=== PATIENT | female | born 1950 | race Caucasian/White ===

== ENCOUNTER 2020-08-18 16:12 | Inpatient (IN) | payer MEDICARE, BC ==
[2020-08-18] MEDS ORDERED: Sodium Chloride 0.9% 1,000 ML IV ONE (17:11)
--- NOTE | 2020-08-18 17:19 | EDM.PDOC ---
ED HPI GENERAL MEDICAL PROBLEM - General Chief Complaint: General Stated Complaint: LOW ON SODIUM SENT BY AB Time Seen by Provider: 08/18/20 16:58 Source of Information: Reports: Patient, RN Notes Reviewed History Limitations: Reports: No Limitations - History of Present Illness INITIAL COMMENTS - FREE TEXT/NARRATIVE: Patient is a 70-year-old female who presents to the ED for evaluation of her low sodium levels. Patient does have a history of breast cancer, was started on 2 different cancer medications recently, these seem to be causing issues with her sodium. Her sodium was low a week ago at 120, and a repeat of her labs today did demonstrate a low sodium of 119. Her potassium was 3.0. She did receive a 500 mL normal saline bolus along with 10 mEq potassium. Patient states she is nauseous in the morning, but is not currently nauseous. She has been using her Phenergan and Zofran for this. Otherwise feeling well no fevers or chills, cough or shortness of breath. She notes that the nurse practitioner did hold of those cancer meds in regards to her low sodium levels. - Related Data Allergies Allergy/AdvReac Type Severity Reaction Status Date / Time cefprozil [From Cefzil] Allergy Severe Rash Verified 08/18/20 16:48 Penicillins Allergy Severe Rash Verified 08/18/20 16:48 Home Meds: Home Meds Acetaminophen [Tylenol] 650 mg PO Q6H PRN 08/18/20 [History] Aspirin [Halfprin] 81 mg PO DAILY 08/18/20 [History] Benzonatate [Tessalon Perle] 1 tab PO TID PRN 08/18/20 [History] Calcium Carbonate [Calcium] 500 mg PO ASDIRECTED 08/18/20 [History] Cyanocobalamin (Vitamin B12) [Vitamin B12] 500 mcg PO DAILY 08/18/20 [History] Granisetron [Kytril] 1 mg PO Q6H PRN 08/18/20 [History] Insulin Glargine,Hum.Rec.Anlog [Hari Hammonds] 68 units INJECT DAILY 08/18/20 [History] Insulin Lispro [Humalog Kwikpen U-100] 10 units INJECT DAILY 08/18/20 [History] Insulin Lispro [Humalog Kwikpen U-100] 15 unit INJECT 1200 08/18/20 [History] Insulin Lispro [Humalog Kwikpen U-100] 25 unit INJECT 1700 08/18/20 [History] LORazepam [Ativan] 1 mg PO DAILY 08/18/20 [History] Latanoprost [Xalatan 0.005% Ophth Soln] 1 drop TOP BEDTIME 08/18/20 [History] Lutein/Minerals/Vit A,C & E [Ocuvite] 1 tab PO DAILY 08/18/20 [History] Metoprolol Tartrate [Lopressor] 100 mg PO BID 08/18/20 [History] Omeprazole Magnesium [Prilosec Otc] 20 mg PO DAILY 08/18/20 [History] Ondansetron [Zofran ODT] 4 mg PO Q6H PRN 08/18/20 [History] Potassium Chloride [K-Tab ER] 10 meq PO TID 08/18/20 [History] Pravastatin [Pravachol] 80 mg PO BEDTIME 08/18/20 [History] Promethazine [Phenergan] 0.2 mg TOP Q6H PRN 08/18/20 [History] Triamcinolone Acetonide [Kenalog 0.1% Crm] 1 applic TOP BID 08/18/20 [History] amLODIPine Besylate [Norvasc] 10 mg PO DAILY 08/18/20 [History] busPIRone [Buspar] 10 mg PO BID 08/18/20 [History] hydroCHLOROthiazide [Hydrochlorothiazide] 12.5 mg PO DAILY 08/18/20 [History] lidocaine HCL [Lidocaine HCl Viscous] 30 ml PO Q6H PRN 08/18/20 [History] prednisoLONE acetate [Pred Forte 1% Ophth Susp] 1 drop TOP TID 08/18/20 [History] Past Medical History Endocrine/Metabolic History: Reports: Diabetes, Type II Oncologic (Cancer) History: Reports: Breast Other Oncologic History: right MASTECTOMY 2000 - Past Surgical History Female Surgical History: Reports: Mastectomy Social & Family History - Tobacco Use Tobacco Use Status *Q: Never Tobacco User - Caffeine Use Caffeine Use: Reports: Soda - Recreational Drug Use Recreational Drug Use: No ED ROS GENERAL - Review of Systems Review Of Systems: Comprehensive ROS is negative, except as noted in HPI. ED EXAM, GENERAL - Physical Exam Exam: See Below Exam Limited By: No Limitations General Appearance: Alert, WD/WN, No Apparent Distress Respiratory/Chest: No Respiratory Distress, Lungs Clear, Normal Breath Sounds, No Accessory Muscle Use, Chest Non-Tender Cardiovascular: Normal Peripheral Pulses, Regular Rate, Rhythm, No Edema, No Murmur Extremities: Normal Inspection, Normal Capillary Refill Neurological: Alert, Oriented, Normal Cognition, No Motor/Sensory Deficits Psychiatric: Normal Affect, Normal Mood Skin Exam: Warm, Dry, Intact, Normal Color, No Rash Course - Vital Signs Last Recorded V/S: Last Vital Signs Temp 98.1 F 08/18/20 19:19 Pulse 85 08/18/20 19:19 Resp 16 08/18/20 19:19 BP 152/58 H 08/18/20 19:19 Pulse Ox 90 L 08/18/20 19:19 - Orders/Labs/Meds Orders: Active Orders 24 hr Category Date Time Status Admission Status [Patient Status] [ADT] Routine ADT 08/18/20 19:57 Active SODIUM,NA [CHEM] Stat Lab 08/18/20 19:50 Ordered Magnesium Sulfate/Water [Magnesium Sulfate in Water Med 08/18/20 18:52 Active Premix] 2 gm Premix Bag 1 bag IV ONETIME Sodium Chloride 3% 500 ml Med 08/18/20 20:00 Active IV ASDIRECTED Medication Orders Magnesium Sulfate 2 gm/ Premix 50 mls @ 25 mls/hr IV ONETIME ONE Stop: 08/18/20 20:51 Last Admin: 08/18/20 19:16 Dose: 25 mls/hr Documented by: ARNOLDO Sodium Chloride (Sodium Chloride 3%) 500 mls @ 35 mls/hr IV ASDIRECTED COLLINS Labs: Laboratory Tests 08/18/20 08/18/20 Range/Units 17:21 18:45 Sodium 118 L (136-145) mEq/L Potassium 2.8 L (3.5-5.1) mEq/L Chloride 81 L (98-107) mEq/L Carbon Dioxide 29 (21-32) mEq/L Anion Gap 10.8 (5-15) BUN 13 (7-18) mg/dL Creatinine 1.7 H (0.55-1.02) mg/dL Est Cr Clr Drug Dosing 24.70 mL/min Estimated GFR (MDRD) 30 (>60) mL/min BUN/Creatinine Ratio 7.6 L (14-18) Glucose 104 (80-115) mg/dL Serum Osmolality 249 L (280-300) mosm/kg Calcium 8.2 L (8.5-10.1) mg/dL Magnesium 1.4 L (1.8-2.4) mg/dl Total Bilirubin 0.4 (0.2-1.0) mg/dL AST 48 H (15-37) U/L ALT 26 (14-59) U/L Alkaline Phosphatase 94 (46-116) U/L Total Protein 7.1 (6.4-8.2) g/dl Albumin 2.8 L (3.4-5.0) g/dl Globulin 4.3 gm/dL Albumin/Globulin Ratio 0.7 L (1-2) SARS-CoV-2 RNA (TORSTEN) Negative (NEGATIVE) Meds: Medications Generic Name Dose Route Start Last Admin Trade Name Freq PRN Reason Stop Dose Admin Magnesium Sulfate 2 gm/ Premix 50 mls @ 25 mls/hr 08/18/20 18:52 08/18/20 19:16 IV 08/18/20 20:51 25 mls/hr ONETIME ONE Administration Sodium Chloride 500 mls @ 35 mls/hr 08/18/20 20:00 Sodium Chloride 3% IV ASDIRECTED COLLINS Discontinued Medications Generic Name Dose Route Start Last Admin Trade Name Freq PRN Reason Stop Dose Admin Sodium Chloride 1,000 mls @ 500 mls/hr 08/18/20 17:11 08/18/20 17:43 Normal Saline IV 08/18/20 19:10 500 mls/hr ONETIME ONE Administration Ondansetron HCl 4 mg 08/18/20 19:21 08/18/20 19:25 Zofran IVPUSH 08/18/20 19:22 4 mg ONETIME ONE Administration Potassium Chloride 40 meq 08/18/20 18:52 08/18/20 19:14 Klor-Con M20 PO 08/18/20 18:53 40 meq ONETIME ONE Administration - Re-Assessments/Exams Free Text/Narrative Re-Assessment/Exam: 08/18/20 17:20 Patient presents to the ED for her low sodium levels. We will repeat labs to include CMP, magnesium level and a serum osmolality. I do believe that the medications she was given have caused some issues with her sodium levels but she has also been drinking a lot of water at home, which could be aggravating the situation. She will get IV fluids at 500 mils per hour while we are waiting for the results of the labs. Departure - Departure Time of Disposition: 20:02 Disposition: Refer to Observation Condition: Good Clinical Impression: Hyponatremia with decreased serum osmolality, Hypokalemia, Hypomagnesemia UTI (urinary tract infection) Qualifiers: Urinary tract infection type: acute cystitis Hematuria presence: with hematuria Qualified Code(s): N30.01 - Acute cystitis with hematuria - Discharge Information *PRESCRIPTION DRUG MONITORING PROGRAM REVIEWED*: No *COPY OF PRESCRIPTION DRUG MONITORING REPORT IN PATIENT JUANPABLO: No Referrals: Arelis Merchant NP [Primary Care Provider] - Forms: ED Department Discharge Sepsis Event Note (ED) - Evaluation Sepsis Screening Result: No Definite Risk - Focused Exam Vital Signs: Vital Signs Temp Pulse Resp BP Pulse Ox 08/18/20 19:19 98.1 F 85 16 152/58 H 90 L 08/18/20 16:52 98.2 F 79 20 147/52 H 93 L - My Orders Last 24 Hours: My Active Orders 08/18/20 18:52 Magnesium Sulfate/Water [Magnesium Sulfate in Water Premix] 2 gm Premix Bag 1 bag IV ONETIME 08/18/20 19:50 SODIUM,NA [CHEM] Stat 08/18/20 19:57 Admission Status [Patient Status] [ADT] Routine 08/18/20 20:00 Sodium Chloride 3% 500 ml IV ASDIRECTED - Assessment/Plan Last 24 Hours: My Active Orders 08/18/20 18:52 Magnesium Sulfate/Water [Magnesium Sulfate in Water Premix] 2 gm Premix Bag 1 bag IV ONETIME 08/18/20 19:50 SODIUM,NA [CHEM] Stat 08/18/20 19:57 Admission Status [Patient Status] [ADT] Routine 08/18/20 20:00 Sodium Chloride 3% 500 ml IV ASDIRECTED
[2020-08-18] MEDS ORDERED: Magnesium Sulfate/Water 2 GM in Premix Bag 1 BAG IV ONE (18:52)
[2020-08-18] MEDS ORDERED: Potassium Chloride 20 MEQ Tab.ER PO ONE (18:52)
[2020-08-18] MEDS ORDERED: Ondansetron 4 MG/2 ML SDV IVPUSH ONE (19:21)
[2020-08-18] MEDS ORDERED: Sodium Chloride 3% 500 ML IV SCH (20:00)
[2020-08-18] MEDS ORDERED: Ondansetron 4 MG/2 ML SDV IV PRN (21:51)
[2020-08-18] MEDS ORDERED: Benzonatate 100 MG Cap PO PRN (21:59)
--- NOTE | 2020-08-18 22:15 | PCM.HP.2 ---
H&P History of Present Illness - General Date of Service: 08/18/20 Admit Problem/Dx: Admission Diagnosis/Problem Admission Diagnosis/Problem Hyponatremia with decreased serum osmolality - History of Present Illness Initial Comments - Free Text/Narative: 70-year-old female with history of breast cancer first diagnosed in 2000 had a recurrence in 2018 with metastasis to the lung and then after further chemo returned again approximately a month ago into her lymph nodes. Approximately 1 month ago she started on Afinitor and Aromasin and since then she has been feeling fatigued. Apparently she has had significantly low sodium levels over the last week or so. Last week her sodium was 120 and today at clinic it was 119. Potassium was also low at 3.0. She was given 500 mL of normal saline and 10 mEq of potassium at the cancer clinic and referred to our emergency department. There her sodium was found to be 118 with potassium of 2.8 and a magnesium of 1.4. She was given another 500 mL of normal saline, potassium 40 mEq p.o., and 2 g of magnesium IV. Patient was then referred for admission for further correction of her chronic hyponatremia. Oncology nurse practitioner did tell her to stop taking her to do chemotherapy medications. She states the last time she took Afinitor was 1 week ago and Aromasin yesterday. She also states that she is feeling better now than she has in the last month. She feels a little stronger. Serum osmolality here was 249, but a urine osmolality and urine sodium were not obtained. Patient did have a UTI on labs obtained at the cancer center. She had greater than 50 WBCs and positive nitrites. Covid negative. When she was brought to the inpatient side her oxygen saturations were below 90. Patient was started on 2 L nasal cannula. - Related Data Allergies/Adverse Reactions: Allergies Allergy/AdvReac Type Severity Reaction Status Date / Time cefprozil [From Cefzil] Allergy Severe Rash Verified 08/18/20 16:48 Penicillins Allergy Severe Rash Verified 08/18/20 16:48 Home Medications: Home Meds Acetaminophen [Tylenol] 650 mg PO Q6H PRN 08/18/20 [History] Aspirin [Halfprin] 81 mg PO DAILY 08/18/20 [History] Benzonatate [Tessalon Perle] 1 tab PO TID PRN 08/18/20 [History] Calcium Carbonate [Calcium] 500 mg PO ASDIRECTED 08/18/20 [History] Cyanocobalamin (Vitamin B12) [Vitamin B12] 500 mcg PO DAILY 08/18/20 [History] Granisetron [Kytril] 1 mg PO Q6H PRN 08/18/20 [History] Insulin Glargine,Hum.Rec.Anlog [Toujeo Solostar] 68 units INJECT DAILY 08/18/20 [History] Insulin Lispro [Humalog Kwikpen U-100] 10 units INJECT DAILY 08/18/20 [History] Insulin Lispro [Humalog Kwikpen U-100] 15 unit INJECT 1200 08/18/20 [History] Insulin Lispro [Humalog Kwikpen U-100] 25 unit INJECT 1700 08/18/20 [History] LORazepam [Ativan] 1 mg PO DAILY 08/18/20 [History] Latanoprost [Xalatan 0.005% Ophth Soln] 1 drop TOP BEDTIME 08/18/20 [History] Lutein/Minerals/Vit A,C & E [Ocuvite] 1 tab PO DAILY 08/18/20 [History] Metoprolol Tartrate [Lopressor] 100 mg PO BID 08/18/20 [History] Omeprazole Magnesium [Prilosec Otc] 20 mg PO DAILY 08/18/20 [History] Ondansetron [Zofran ODT] 4 mg PO Q6H PRN 08/18/20 [History] Potassium Chloride [K-Tab ER] 10 meq PO TID 08/18/20 [History] Pravastatin [Pravachol] 80 mg PO BEDTIME 08/18/20 [History] Promethazine [Phenergan] 0.2 mg TOP Q6H PRN 08/18/20 [History] Triamcinolone Acetonide [Kenalog 0.1% Crm] 1 applic TOP BID 08/18/20 [History] amLODIPine Besylate [Norvasc] 10 mg PO DAILY 08/18/20 [History] busPIRone [Buspar] 10 mg PO BID 08/18/20 [History] hydroCHLOROthiazide [Hydrochlorothiazide] 12.5 mg PO DAILY 08/18/20 [History] lidocaine HCL [Lidocaine HCl Viscous] 30 ml PO Q6H PRN 08/18/20 [History] prednisoLONE acetate [Pred Forte 1% Ophth Susp] 1 drop TOP TID 08/18/20 [History] Past Medical History Endocrine/Metabolic History: Reports: Diabetes, Type II Oncologic (Cancer) History: Reports: Breast Other Oncologic History: right MASTECTOMY 2000 - Past Surgical History Female Surgical History: Reports: Mastectomy Social & Family History - Tobacco Use Tobacco Use Status *Q: Never Tobacco User - Caffeine Use Caffeine Use: Reports: Soda - Recreational Drug Use Recreational Drug Use: No H&P Review of Systems - Review of Systems: Review Of Systems: Comprehensive ROS is negative, except as noted in HPI. Exam - Exam Exam: See Below - Vital Signs Vital Signs: Last Vital Signs Temp 98.1 F 08/18/20 19:19 Pulse 85 08/18/20 19:19 Resp 16 08/18/20 19:19 BP 152/58 H 08/18/20 19:19 Pulse Ox 90 L 08/18/20 19:19 Weight: 175 lb - Exam General: Alert, Oriented, 4 HEENT: Conjunctiva Clear, Mucosa Moist & [place]yp[place], Normal Nasal Septum. No: Hearing Intact Neck: Supple, Trachea Midline, 2 Lungs: Clear to Auscultation, Normal Respiratory Effort Cardiovascular: Regular Rate, Regular Rhythm GI/Abdominal Exam: Normal Bowel Sounds, Soft, Non-Tender, No Distention Back Exam: Normal Inspection Extremities: Normal Inspection, Normal Range of Motion, Non-Tender, No Pedal Edema, Normal Capillary Refill Skin: Warm, Dry, Intact Neuro Extensive - Mental Status: Alert, Oriented x3, Normal Mood/Affect, Normal Cognition, Memory Intact Neuro Extensive - Motor, Sensory, Reflexes: CN II-XII Intact, Normal Gait, Normal Reflexes Psychiatric: Alert, Normal Affect, Normal Mood - Patient Data Lab Results Last 24 hrs: Laboratory Results - last 24 hr 08/18/20 08/18/20 08/18/20 Range/Units 17:21 18:45 20:33 Sodium 118 L 119 L (136-145) mEq/L Potassium 2.8 L (3.5-5.1) mEq/L Chloride 81 L (98-107) mEq/L Carbon Dioxide 29 (21-32) mEq/L Anion Gap 10.8 (5-15) BUN 13 (7-18) mg/dL Creatinine 1.7 H (0.55-1.02) mg/dL Est Cr Clr Drug Dosing 24.70 mL/min Estimated GFR (MDRD) 30 (>60) mL/min BUN/Creatinine Ratio 7.6 L (14-18) Glucose 104 (80-115) mg/dL POC Glucose (80-115) mg/dL Serum Osmolality 249 L (280-300) mosm/kg Calcium 8.2 L (8.5-10.1) mg/dL Magnesium 1.4 L (1.8-2.4) mg/dl Total Bilirubin 0.4 (0.2-1.0) mg/dL AST 48 H (15-37) U/L ALT 26 (14-59) U/L Alkaline Phosphatase 94 (46-116) U/L Total Protein 7.1 (6.4-8.2) g/dl Albumin 2.8 L (3.4-5.0) g/dl Globulin 4.3 gm/dL Albumin/Globulin Ratio 0.7 L (1-2) SARS-CoV-2 RNA (TORSTEN) Negative (NEGATIVE) 08/18/20 Range/Units 21:54 Sodium (136-145) mEq/L Potassium (3.5-5.1) mEq/L Chloride (98-107) mEq/L Carbon Dioxide (21-32) mEq/L Anion Gap (5-15) BUN (7-18) mg/dL Creatinine (0.55-1.02) mg/dL Est Cr Clr Drug Dosing mL/min Estimated GFR (MDRD) (>60) mL/min BUN/Creatinine Ratio (14-18) Glucose (80-115) mg/dL POC Glucose 125 H (80-115) mg/dL Serum Osmolality (280-300) mosm/kg Calcium (8.5-10.1) mg/dL Magnesium (1.8-2.4) mg/dl Total Bilirubin (0.2-1.0) mg/dL AST (15-37) U/L ALT (14-59) U/L Alkaline Phosphatase (46-116) U/L Total Protein (6.4-8.2) g/dl Albumin (3.4-5.0) g/dl Globulin gm/dL Albumin/Globulin Ratio (1-2) SARS-CoV-2 RNA (TORSTEN) (NEGATIVE) Result Diagrams: 08/18/20 20:33 Sepsis Event Note - Evaluation Sepsis Screening Result: No Definite Risk - Focused Exam Vital Signs: Vital Signs Temp Pulse Resp BP Pulse Ox 08/18/20 19:19 98.1 F 85 16 152/58 H 90 L 08/18/20 16:52 98.2 F 79 20 147/52 H 93 L - Problem List (1) Metastatic breast cancer SNOMED Code(s): 130296814, 455028952 ICD Code: C50.919 - MALIGNANT NEOPLASM OF UNSP SITE OF UNSPECIFIED FEMALE BREAST Status: Acute Current Visit: Yes (2) Renal insufficiency SNOMED Code(s): 462408945, 982421174 ICD Code: N28.9 - DISORDER OF KIDNEY AND URETER, UNSPECIFIED Status: Acute Current Visit: Yes (3) Hypoalbuminemia SNOMED Code(s): 626593929 ICD Code: E88.09 - OTH DISORDERS OF PLASMA-PROTEIN METABOLISM, NEC Status: Acute Current Visit: Yes (4) Diabetes mellitus SNOMED Code(s): 48021803 ICD Code: E11.9 - TYPE 2 DIABETES MELLITUS WITHOUT COMPLICATIONS Status: Acute Current Visit: Yes (5) Hypertension SNOMED Code(s): 98714620 ICD Code: I10 - ESSENTIAL (PRIMARY) HYPERTENSION Status: Acute Current Visit: Yes (6) Anxiety SNOMED Code(s): 00621746 ICD Code: F41.9 - ANXIETY DISORDER, UNSPECIFIED Status: Acute Current Visit: Yes (7) Hypokalemia SNOMED Code(s): 69280219 ICD Code: E87.6 - HYPOKALEMIA Status: Acute Current Visit: Yes (8) Hypomagnesemia SNOMED Code(s): 168214572 ICD Code: E83.42 - HYPOMAGNESEMIA Status: Acute Current Visit: Yes (9) Hyponatremia with decreased serum osmolality SNOMED Code(s): 031561350 ICD Code: E87.1 - HYPO-OSMOLALITY AND HYPONATREMIA Status: Acute Current Visit: Yes (10) UTI (urinary tract infection) SNOMED Code(s): 31950497 ICD Code: N39.0 - URINARY TRACT INFECTION, SITE NOT SPECIFIED Status: Acute Current Visit: Yes Qualifiers: Urinary tract infection type: acute cystitis Hematuria presence: with hematuria Qualified Code(s): N30.01 - Acute cystitis with hematuria Problem List Initiated/Reviewed/Updated: Yes Orders Last 24hrs: Active Orders 24 hr Category Date Time Status Admission Status [Patient Status] [ADT] Routine ADT 08/18/20 19:57 Active Blood Glucose Check, Bedside [RC] QIDACANDBED Care 08/18/20 22:03 Ordered Oxygen Therapy [RC] PRN Care 08/18/20 21:51 Ordered Up With Assistance [RC] ASDIRECTED Care 08/18/20 21:51 Ordered VTE/DVT Education [RC] PER UNIT ROUTINE Care 08/18/20 21:51 Ordered Vital Signs [RC] Q4H Care 08/18/20 21:51 Ordered Consistent Carbohydrate Diet [DIET] Diet 08/18/20 Dinner Ordered BASIC METABOLIC PANEL,BMP [CHEM] Timed Lab 08/19/20 02:00 Ordered MAGNESIUM [CHEM] Timed Lab 08/19/20 02:00 Ordered Acetaminophen [TylenoL] Med 08/18/20 21:51 Ordered 650 mg PO Q4H PRN Aspirin [Halfprin] Med 08/19/20 09:00 Ordered 81 mg PO DAILY Benzonatate [Tessalon Perles] Med 08/18/20 21:59 Ordered 100 mg PO TID PRN Dextrose 50% in Water Med 08/18/20 22:03 Ordered 50 ml IVPUSH ASDIRECTED PRN Enoxaparin [Lovenox] Med 08/19/20 09:00 Ordered 40 mg SUBCUT DAILY Insulin Glarg,Human.Rec.Analog [LantUS] Med 08/19/20 09:00 Ordered 50 unit SUBCUT DAILY Insulin Lispro [HumaLOG] Med 08/19/20 09:00 Ordered 10 unit SUBCUT TIDPC Latanoprost [Xalatan 0.005% Ophth Soln] Med 08/19/20 21:00 Ordered 1 drop EYEBOTH BEDTIME Metoprolol Tartrate [Lopressor] Med 08/19/20 09:00 Ordered 100 mg PO BID Ondansetron [Zofran] Med 08/18/20 21:51 Ordered 4 mg IV Q4H PRN Sodium Chloride 3% 500 ml Med 08/18/20 20:00 Active IV ASDIRECTED amLODIPine [Norvasc] Med 08/19/20 09:00 Ordered 10 mg PO DAILY busPIRone Med 08/19/20 09:00 Ordered 10 mg PO BID cefTRIAXone [Rocephin] 1 gm Med 08/18/20 22:00 Ordered Sodium Chloride 0.9% [Normal Saline] 100 ml IV Q24H Resuscitation Status Routine Resus Stat 08/18/20 21:51 Ordered Medication Orders Acetaminophen (Tylenol) 650 mg PO Q4H PRN PRN Reason: Pain (Mild 1-3)/fever Amlodipine Besylate (Norvasc) 10 mg PO DAILY COLLINS Aspirin (Halfprin) 81 mg PO DAILY COLLINS Benzonatate (Tessalon Perles) 100 mg PO TID PRN PRN Reason: Cough Dextrose/Water (Dextrose 50% In Water) 50 ml IVPUSH ASDIRECTED PRN PRN Reason: Hypoglycemia Enoxaparin Sodium (Lovenox) 40 mg SUBCUT DAILY COLLINS Sodium Chloride (Sodium Chloride 3%) 500 mls @ 15 mls/hr IV ASDIRECTED COLLINS Last Admin: 08/18/20 20:59 Dose: 35 mls/hr Documented by: ARNOLDO Ceftriaxone Sodium 1 gm/ (Sodium Chloride) 100 mls @ 200 mls/hr IV Q24H COLLINS Insulin Glargine (Lantus) 50 unit SUBCUT DAILY [facility] Insulin Human Lispro (Humalog) 10 unit SUBCUT TIDPC COLLINS Latanoprost (Xalatan 0.005% Ophth Soln) ml EYEBOTH BEDTIME COLLINS Metoprolol Tartrate (Lopressor) 100 mg PO BID COLLINS Non-Formulary Medication (Buspirone) 10 mg PO BID COLLINS Ondansetron HCl (Zofran) 4 mg IV Q4H PRN PRN Reason: Nausea/Vomiting Assessment/Plan Comment:: Assessment Severe chronic hyponatremia Hypomagnesemia Hypokalemia Hypoalbuminemia Metastatic breast cancer * Mild symptoms from hyponatremia: Nausea, lethargy, fatigue * Hyponatremia for at least 1 week when her sodium level was 120 last week. * Poor oral intake likely contributing to the above. * Also on a thiazide diuretic, hydrochlorothiazide 12.5 mg daily. * Low serum osmolality, but no urine osmolality or urine sodium available. * Given 500 mL normal saline at the cancer clinic and 1000 mL in the emergency department. * Repeat sodium 119 * Given 40 mEq of oral potassium and 2 g of IV magnesium in the emergency de partment * Albumin 2.8 UTI * Urine done at clinic was positive for nitrites and greater than 50 WBCs per high-powered field Diabetes mellitus, insulin-dependent * Patient states that she has recently had low blood sugars in the mornings. This appears to be secondary to poor intake after starting chemotherapy. * Home dose: Toujeo 68 units every morning, Humalog 10 units in the morning, 15 units in the afternoon, and 25 units in the evening with sliding scale * Unknown hemoglobin A1c Renal insufficiency, unknown chronic versus acute * Creatinine 1.7, estimated GFR 30 Hypertension Hyperlipidemia * Blood pressure in the emergency department 147/52. * Home medications include Pravachol, metoprolol, hydrochlorothiazide, and amlodipine Plan * Admit to medical floor for observation * Telemetry * Stop thiazide diuretic * Start 3% saline at 15 mL an hour overnight * Recheck BMP, magnesium, in 4 hours * Follow sodium every 4 hours until above 120. Plan to only increase sodium by 6 in 24 hours. * Patient has had poor oral intake, we will decrease insulin dose. Lantus 50 units in the morning and Humalog 10 units with each meal plus sliding scale low-dose. * If patient is still here on Friday we will get dietary consult. * Urine culture * Rocephin 1 g every 24 hours for 3 to 5 days. I discussed her allergy to cefprozil and she states she does not remember having a rash to it. Her rash to penicillin was many years ago. * Reconcile medications * VTE prophylaxis with Lovenox * CODE STATUS full code - Mortality Measure Prognosis:: Good
[2020-08-19] MEDS: cefTRIAXone 1 GM in Sodium Chloride 0.9% 100 ML IV SCH ×2 (02:14→21:16)
[2020-08-19 02:48] LABS: HEMOGLOBIN A1C 7.6 % (4.50-6.20)
[2020-08-19] MEDS ORDERED: Potassium Chloride 20 MEQ Tab.ER PO ONE (03:37)
[2020-08-19] MEDS: Magnesium Sulfate/Water 2 GM/50 ML BAG IV SCH ×2 (03:55→05:29)
[2020-08-19] MEDS: Sodium Chloride 3% 500 ML IV SCH (05:08)
[2020-08-19] MEDS: busPIRone 5 MG Tab PO SCH ×2 (08:57→20:23)
[2020-08-19] MEDS: Aspirin 81 MG Tab.EC PO SCH (08:58)
[2020-08-19] MEDS ORDERED: Insulin Lispro 100 Units/ML 3 ML Vial SUBCUT SCH (09:00)
[2020-08-19] MEDS: Metoprolol Tartrate 100 MG Tab PO SCH ×2 (09:00→20:24)
[2020-08-19] MEDS: Enoxaparin 30 MG/0.3 ML Syringe SUBCUT SCH (09:00)
[2020-08-19] MEDS: amLODIPine 10 MG Tab PO SCH (09:00)
[2020-08-19] MEDS ORDERED: Insulin Glarg,Human.Rec.Analog 100 Unit/ML SUBCUT SCH ×2 (09:00→21:00)
--- NOTE | 2020-08-19 11:24 | PCM.PN ---
- General Info Date of Service: 08/19/20 Admission Dx/Problem (Free Text): Admission Diagnosis/Problem Admission Diagnosis/Problem Hyponatremia with decreased serum osmolality Subjective Update: She feels a little bit better. No issues overnight. She has trouble with chewing. She has a bad gag reflex since she was switched to a new chemo drug per . Patient has been on hydrochlorothiazide for blood pressure control. Her repeat Na this AM is 121. Her K improves to 3.3. Functional Status: Reports: Pain Controlled - Review of Systems General: Denies: Fever, Chills Pulmonary: Reports: Cough. Denies: Shortness of Breath Cardiovascular: Denies: Chest Pain Gastrointestinal: Reports: Decreased Appetite. Denies: Abdominal Pain, Nausea, Vomiting Genitourinary: Denies: Retention Musculoskeletal: Denies: Foot Pain Skin: Denies: Rash Neurological: Denies: Confusion Psychiatric: Denies: Depression, Anxiety - Patient Data Vitals - Most Recent: Last Vital Signs Temp 37.0 C 08/19/20 08:02 Pulse 95 08/19/20 09:00 Resp 16 08/19/20 08:02 BP 132/61 08/19/20 09:00 Pulse Ox 94 L 08/19/20 08:02 Weight - Most Recent: 78.29 kg I&O - Last 24 Hours: Intake & Output 08/18/20 08/19/20 08/19/20 22:59 06:59 14:59 Intake Total 272 Output Total 600 Balance -328 Lab Results Last 24 Hours: Laboratory Results - last 24 hr 08/18/20 08/18/20 08/18/20 Range/Units 17:21 18:45 20:33 WBC (3.98-10.04) K/mm3 RBC (3.98-5.22) M/mm3 Hgb (11.2-15.7) gm/dl Hct (34.1-44.9) % MCV (79.4-94.8) fl MCH (25.6-32.2) pg MCHC (32.2-35.5) g/dl RDW Std Deviation (36.4-46.3) fL Plt Count (182-369) K/mm3 MPV (9.4-12.3) fl Neut % (Auto) (34.0-71.1) % Lymph % (Auto) (19.3-51.7) % [place] % (Auto) (4.7-12.5) % Eos % (Auto) (0.7-5.8) Baso % (Auto) (0.1-1.2) % Neut # (Auto) (1.56-6.13) K/mm3 Lymph # (Auto) (1.18-3.74) K/mm3 [place] # (Auto) (0.24-0.36) K/mm3 Eos # (Auto) (0.04-0.36) K/mm3 Baso # (Auto) (0.01-0.08) K/mm3 Manual Slide Review Sodium 118 L 119 L (136-145) mEq/L Potassium 2.8 L (3.5-5.1) mEq/L Chloride 81 L (98-107) mEq/L Carbon Dioxide 29 (21-32) mEq/L Anion Gap 10.8 (5-15) BUN 13 (7-18) mg/dL Creatinine 1.7 H (0.55-1.02) mg/dL Est Cr Clr Drug Dosing 24.70 mL/min Estimated GFR (MDRD) 30 (>60) mL/min BUN/Creatinine Ratio 7.6 L (14-18) Glucose 104 (80-115) mg/dL POC Glucose (80-115) mg/dL Hemoglobin A1c (4.50-6.20) % Serum Osmolality 249 L (280-300) mosm/kg Calcium 8.2 L (8.5-10.1) mg/dL Phosphorus (2.6-4.7) mg/dL Magnesium 1.4 L (1.8-2.4) mg/dl Total Bilirubin 0.4 (0.2-1.0) mg/dL AST 48 H (15-37) U/L ALT 26 (14-59) U/L Alkaline Phosphatase 94 (46-116) U/L Total Protein 7.1 (6.4-8.2) g/dl Albumin 2.8 L (3.4-5.0) g/dl Globulin 4.3 gm/dL Albumin/Globulin Ratio 0.7 L (1-2) TSH 3rd Generation (0.358-3.74) uIU/mL SARS-CoV-2 RNA ([facility]ST[facility]) Negative (NEGATIVE) 08/18/20 08/19/20 08/19/20 Range/Units 21:54 02:20 02:20 WBC (3.98-10.04) K/mm3 RBC (3.98-5.22) M/mm3 Hgb (11.2-15.7) gm/dl Hct (34.1-44.9) % MCV (79.4-94.8) fl MCH (25.6-32.2) pg MCHC (32.2-35.5) g/dl RDW Std Deviation (36.4-46.3) fL Plt Count (182-369) K/mm3 MPV (9.4-12.3) fl Neut % (Auto) (34.0-71.1) % Lymph % (Auto) (19.3-51.7) % [place] % (Auto) (4.7-12.5) % Eos % (Auto) (0.7-5.8) Baso % (Auto) (0.1-1.2) % Neut # (Auto) (1.56-6.13) K/mm3 Lymph # (Auto) (1.18-3.74) K/mm3 [place] # (Auto) (0.24-0.36) K/mm3 Eos # (Auto) (0.04-0.36) K/mm3 Baso # (Auto) (0.01-0.08) K/mm3 Manual Slide Review Sodium 121 L (136-145) mEq/L Potassium 3.1 L (3.5-5.1) mEq/L Chloride 85 L (98-107) mEq/L Carbon Dioxide 27 (21-32) mEq/L Anion Gap 12.1 (5-15) BUN 10 (7-18) mg/dL Creatinine 1.6 H (0.55-1.02) mg/dL Est Cr Clr Drug Dosing 26.25 mL/min Estimated GFR (MDRD) 32 (>60) mL/min BUN/Creatinine Ratio 6.3 L (14-18) Glucose 98 (80-115) mg/dL POC Glucose 125 H (80-115) mg/dL Hemoglobin A1c 7.60 H (4.50-6.20) % Serum Osmolality (280-300) mosm/kg Calcium 7.8 L (8.5-10.1) mg/dL Phosphorus (2.6-4.7) mg/dL Magnesium 1.6 L (1.8-2.4) mg/dl Total Bilirubin (0.2-1.0) mg/dL AST (15-37) U/L ALT (14-59) U/L Alkaline Phosphatase (46-116) U/L Total Protein (6.4-8.2) g/dl Albumin (3.4-5.0) g/dl Globulin gm/dL Albumin/Globulin Ratio (1-2) TSH 3rd Generation (0.358-3.74) uIU/mL SARS-CoV-2 RNA (TORSTEN) (NEGATIVE) 08/19/20 08/19/20 08/19/20 Range/Units 02:20 06:26 06:40 WBC 4.92 (3.98-10.04) K/mm3 RBC 2.68 L (3.98-5.22) M/mm3 Hgb 7.9 L (11.2-15.7) gm/dl Hct 22.5 L (34.1-44.9) % MCV 84.0 (79.4-94.8) fl MCH 29.5 (25.6-32.2) pg MCHC 35.1 (32.2-35.5) g/dl RDW Std Deviation 47.1 H (36.4-46.3) fL Plt Count 354 (182-369) K/mm3 MPV 8.5 L (9.4-12.3) fl Neut % (Auto) 84.0 H (34.0-71.1) % Lymph % (Auto) 7.1 L (19.3-51.7) % [place] % (Auto) 8.9 (4.7-12.5) % Eos % (Auto) 0 L (0.7-5.8) Baso % (Auto) 0.0 L (0.1-1.2) % Neut # (Auto) 4.13 (1.56-6.13) K/mm3 Lymph # (Auto) 0.35 L (1.18-3.74) K/mm3 [place] # (Auto) 0.44 H (0.24-0.36) K/mm3 Eos # (Auto) 0.00 L (0.04-0.36) K/mm3 Baso # (Auto) 0.00 L (0.01-0.08) K/mm3 Manual Slide Review Abnormal smear Sodium 121 L (136-145) mEq/L Potassium 3.3 L (3.5-5.1) mEq/L Chloride 87 L (98-107) mEq/L Carbon Dioxide 26 (21-32) mEq/L Anion Gap 11.3 (5-15) BUN 9 (7-18) mg/dL Creatinine 1.5 H (0.55-1.02) mg/dL Est Cr Clr Drug Dosing 28.00 mL/min Estimated GFR (MDRD) 34 (>60) mL/min BUN/Creatinine Ratio 6.0 L (14-18) Glucose 79 L (80-115) mg/dL POC Glucose 76 L (80-115) mg/dL Hemoglobin A1c (4.50-6.20) % Serum Osmolality (280-300) mosm/kg Calcium 8.2 L (8.5-10.1) mg/dL Phosphorus 2.9 (2.6-4.7) mg/dL Magnesium 2.7 H (1.8-2.4) mg/dl Total Bilirubin 0.3 (0.2-1.0) mg/dL AST 45 H (15-37) U/L ALT 27 (14-59) U/L Alkaline Phosphatase 93 (46-116) U/L Total Protein 7.1 (6.4-8.2) g/dl Albumin 2.6 L (3.4-5.0) g/dl Globulin 4.5 gm/dL Albumin/Globulin Ratio 0.6 L (1-2) TSH 3rd Generation 2.098 (0.358-3.74) uIU/mL SARS-CoV-2 RNA ([facility]STEN) (NEGATIVE) 08/19/20 Range/Units 11:20 WBC (3.98-10.04) K/mm3 RBC (3.98-5.22) M/mm3 Hgb (11.2-15.7) gm/dl Hct (34.1-44.9) % MCV (79.4-94.8) fl MCH (25.6-32.2) pg MCHC (32.2-35.5) g/dl RDW Std Deviation (36.4-46.3) fL Plt Count (182-369) K/mm3 MPV (9.4-12.3) fl Neut % (Auto) (34.0-71.1) % Lymph % (Auto) (19.3-51.7) % [place] % (Auto) (4.7-12.5) % Eos % (Auto) (0.7-5.8) Baso % (Auto) (0.1-1.2) % Neut # (Auto) (1.56-6.13) K/mm3 Lymph # (Auto) (1.18-3.74) K/mm3 [place] # (Auto) (0.24-0.36) K/mm3 Eos # (Auto) (0.04-0.36) K/mm3 Baso # (Auto) (0.01-0.08) K/mm3 Manual Slide Review Sodium (136-145) mEq/L Potassium (3.5-5.1) mEq/L Chloride (98-107) mEq/L Carbon Dioxide (21-32) mEq/L Anion Gap (5-15) BUN (7-18) mg/dL Creatinine (0.55-1.02) mg/dL Est Cr Clr Drug Dosing mL/min Estimated GFR (MDRD) (>60) mL/min BUN/Creatinine Ratio (14-18) Glucose (80-115) mg/dL POC Glucose 124 H (80-115) mg/dL Hemoglobin A1c (4.50-6.20) % Serum Osmolality (280-300) mosm/kg Calcium (8.5-10.1) mg/dL Phosphorus (2.6-4.7) mg/dL Magnesium (1.8-2.4) mg/dl Total Bilirubin (0.2-1.0) mg/dL AST (15-37) U/L ALT (14-59) U/L Alkaline Phosphatase (46-116) U/L Total Protein (6.4-8.2) g/dl Albumin (3.4-5.0) g/dl Globulin gm/dL Albumin/Globulin Ratio (1-2) TSH 3rd Generation (0.358-3.74) uIU/mL SARS-CoV-2 RNA ([facility]STEN) (NEGATIVE) Med Orders - Current: Current Medications Acetaminophen (Tylenol) 650 mg PO Q4H PRN PRN Reason: Pain (Mild 1-3)/fever Amlodipine Besylate (Norvasc) 10 mg PO DAILY [facility] Last Admin: 08/19/20 09:00 Dose: 10 mg Documented by: Aspirin (Halfprin) 81 mg PO DAILY [facility] Last Admin: 08/19/20 08:58 Dose: 81 mg Documented by: Benzonatate (Tessalon Perles) 100 mg PO TID PRN PRN Reason: Cough Buspirone HCl (Buspar) 10 mg PO BID [facility] Last Admin: 08/19/20 08:57 Dose: 10 mg Documented by: Dextrose/Water (Dextrose 50% In Water) 50 ml IVPUSH ASDIRECTED PRN PRN Reason: Hypoglycemia Enoxaparin Sodium (Lovenox) 30 mg SUBCUT DAILY [facility] Last Admin: 08/19/20 09:00 Dose: 30 mg Documented by: Ceftriaxone Sodium 1 gm/ (Sodium Chloride) 100 mls @ 200 mls/hr IV Q24H [facility] Last Admin: 08/19/20 02:14 Dose: 200 mls/hr Documented by: Sodium Chloride (Sodium Chloride 3%) 500 mls @ 15 mls/hr IV ASDIRECTED [facility] Last Admin: 08/19/20 05:08 Dose: 15 mls/hr Documented by: Insulin Glargine (Lantus) 50 unit SUBCUT DAILY [facility] Last Admin: 08/19/20 08:58 Dose: 50 units Documented by: Insulin Human Lispro (Humalog) 10 unit SUBCUT TIDPC [facility] Last Admin: 08/19/20 08:58 Dose: Not Given Documented by: Latanoprost (Xalatan 0.005% Ophth Soln) 0 ml EYEBOTH BEDTIME [facility] Metoprolol Tartrate (Lopressor) 100 mg PO BID [facility] Last Admin: 08/19/20 09:00 Dose: 100 mg Documented by: Ondansetron HCl (Zofran) 4 mg IV Q4H PRN PRN Reason: Nausea/Vomiting Discontinued Medications Sodium Chloride (Normal Saline) 1,000 mls @ 500 mls/hr IV ONETIME ONE Stop: 08/18/20 19:10 Last Admin: 08/18/20 17:43 Dose: 500 mls/hr Documented by: Magnesium Sulfate 2 gm/ Premix 50 mls @ 25 mls/hr IV ONETIME ONE Stop: 08/18/20 20:51 Last Admin: 08/18/20 19:16 Dose: 25 mls/hr Documented by: Sodium Chloride (Sodium Chloride 3%) 500 mls @ 15 mls/hr IV ASDIRECTED [facility] Last Admin: 08/18/20 20:59 Dose: 35 mls/hr Documented by: Magnesium Sulfate (Magnesium Sulfate In Water Premix) 2 gm in 50 mls @ 25 mls/hr IV Q2H [facility] Stop: 08/19/20 07:59 Last Admin: 08/19/20 05:29 Dose: 25 mls/hr Documented by: Ondansetron HCl (Zofran) 4 mg IVPUSH ONETIME ONE Stop: 08/18/20 19:22 Last Admin: 08/18/20 19:25 Dose: 4 mg Documented by: Potassium Chloride (Klor-Con M20) 40 meq PO ONETIME ONE Stop: 08/18/20 18:53 Last Admin: 08/18/20 19:14 Dose: 40 meq Documented by: Potassium Chloride (Klor-Con M20) 40 meq PO ONETIME ONE Stop: 08/19/20 03:38 Last Admin: 08/19/20 03:53 Dose: 40 meq Documented by: - Exam Quality Assessment: Supplemental Oxygen. No: Urine Catheter General: Alert, Oriented, Cooperative HEENT: Pupils Equal, Pupils Reactive, EOMI, Mucous Membr. Moist/[place] Neck: Supple Lungs: Clear to Auscultation, Normal Respiratory Effort Cardiovascular: Regular Rate, Regular Rhythm GI/Abdominal Exam: Normal Bowel Sounds, Soft, Non-Tender, No Organomegaly, No Distention, No Abnormal Bruit (Female) Exam: Deferred Back Exam: Normal Inspection, Decreased Range of Motion Extremities: Normal Inspection, Normal Range of Motion, Non-Tender, No Pedal Edema, Normal Capillary Refill Peripheral Pulses: 2+: Dorsalis Pedis (L), Dorsalis Pedis (R) Skin: Warm, Dry, Intact Neurological: No New Focal Deficit Psy/Mental Status: Alert, Normal Affect, Normal Mood Sepsis Event Note - Evaluation Sepsis Screening Result: No Definite Risk - Focused Exam Vital Signs: Vital Signs Temp Pulse Resp BP Pulse Ox 08/19/20 09:00 95 132/61 08/19/20 08:02 37.0 C 95 16 132/61 94 L 08/19/20 03:36 38.0 C 95 18 148/47 H 98 - Problem List Review Problem List Initiated/Reviewed/Updated: Yes - Plan Plan:: Assessment Severe chronic hyponatremia Hypomagnesemia Hypokalemia Hypoalbuminemia Metastatic breast cancer * Mild symptoms from hyponatremia: Nausea, lethargy, fatigue * 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 * Poor oral intake likely contributing to the above. * Also on a thiazide diuretic, hydrochlorothiazide 12.5 mg daily; has been discontinued hctz * Low serum osmolality, but no urine osmolality or urine sodium available. * Given 500 mL normal saline at the cancer clinic and 1000 mL in the emergency department. * Repeat sodium 119--> 121 after low dose hypertonic saline * Will start restriction of 1.2 L if no response she may need additional hype rtonic saline infusion * Goal: Upper 120s to low 130s * Given 40 mEq of oral potassium and 2 g of IV magnesium in the emergency department * Albumin 2.8 UTI * Urine done at clinic was positive for nitrites and greater than 50 WBCs per high-powered field * Continue 1 gram Rocephin daily Diabetes mellitus, insulin-dependent * Patient states that she has recently had low blood sugars in the mornings. This appears to be secondary to poor intake after starting chemotherapy. * Home dose: Toujeo 68 units every morning, Humalog 10 units in the morning, 15 units in the afternoon, and 25 units in the evening with sliding scale * She drops in the 70s this AM. She is not eating much. We will adjust her insulin regimen. Lantus 15 units BID with Moderate ISS. * Unknown hemoglobin A1c Renal insufficiency, unknown chronic versus acute * Creatinine 1.7, estimated GFR 30 Hypertension Hyperlipidemia * Blood pressure in the emergency department 147/52. * Home medications include Pravachol, metoprolol, hydrochlorothiazide, and amlodipine Normocytic Normochromic Anemia Plan * Continue curren6 treatment * Recheck BMP, magnesium, in 4 hours * Poor intake; will adjust insulin regimen * Swallow eval Friday due to bag gag reflex * If patient is still here on Friday we will get dietary consult * Rocephin 1 g every 24 hours for 3 to 5 days. * Reconcile medications * VTE prophylaxis with Lovenox * CODE STATUS full code
[2020-08-19] MEDS ORDERED: Insulin Lispro 100 Units/ML 3 ML Vial SUBCUT PRN (13:42)
[2020-08-19] MEDS: 50% Dextrose in Water 50 ML Syringe IVPUSH PRN (16:18)
[2020-08-19] MEDS: Insulin Lispro 100 Units/ML 3 ML Vial SUBCUT SCH (17:34)
[2020-08-19] MEDS: Latanoprost 0.005% Ophth Soln 2.5 ML Bottle EYEBOTH SCH (20:23)
[2020-08-19] MEDS: Acetaminophen 325 MG Tab PO PRN (20:36)
[2020-08-20] MEDS: Sodium Chloride 3% 500 ML IV SCH (05:39)
[2020-08-20] MEDS: 50% Dextrose in Water 50 ML Syringe IVPUSH PRN (07:14)
--- NOTE | 2020-08-20 07:45 | PCM.PN ---
- General Info Date of Service: 08/20/20 Admission Dx/Problem (Free Text): Admission Diagnosis/Problem Admission Diagnosis/Problem Hyponatremia with decreased serum osmolality Subjective Update: No overnight issues. She feels good and somewhat sleepy this morning. She denies having fever chills. No shortness or breath or chills. Her sodium is now at 128. Functional Status: Reports: Pain Controlled - Review of Systems General: Denies: Fever, Chills HEENT: Denies: Sore Throat Pulmonary: Denies: Shortness of Breath, Cough Cardiovascular: Denies: Palpitations Gastrointestinal: Reports: Diarrhea. Denies: Abdominal Pain, Constipation, Nausea Genitourinary: Denies: Burning Musculoskeletal: Denies: Joint Pain Skin: Denies: Rash Neurological: Denies: Confusion, Dizziness, Difficulty Walking Psychiatric: Denies: Depression, Anxiety - Patient Data Vitals - Most Recent: Last Vital Signs Temp 36.6 C 08/20/20 04:23 Pulse 76 08/20/20 04:23 Resp 20 08/20/20 04:23 BP 132/48 L 08/20/20 04:23 Pulse Ox 93 L 08/20/20 04:23 Weight - Most Recent: 78.018 kg I&O - Last 24 Hours: Intake & Output 08/19/20 08/20/20 08/20/20 22:59 06:59 14:59 Intake Total 630 529 Output Total 700 200 Balance -70 329 Lab Results Last 24 Hours: Laboratory Results - last 24 hr 08/19/20 08/19/20 08/19/20 Range/Units 11: 15:21 15:43 WBC (3.98-10.04) K/mm3 RBC (3.98-5.22) M/mm3 Hgb (11.2-15.7) gm/dl Hct (34.1-44.9) % MCV (79.4-94.8) fl MCH (25.6-32.2) pg MCHC (32.2-35.5) g/dl RDW Std Deviation (36.4-46.3) fL Plt Count (182-369) K/mm3 MPV (9.4-12.3) fl Neut % (Auto) (34.0-71.1) % Lymph % (Auto) (19.3-51.7) % [place] % (Auto) (4.7-12.5) % Eos % (Auto) (0.7-5.8) Baso % (Auto) (0.1-1.2) % Neut # (Auto) (1.56-6.13) K/mm3 Lymph # (Auto) (1.18-3.74) K/mm3 [place] # (Auto) (0.24-0.36) K/mm3 Eos # (Auto) (0.04-0.36) K/mm3 Baso # (Auto) (0.01-0.08) K/mm3 Sodium (136-145) mEq/L Potassium (3.5-5.1) mEq/L Chloride (98-107) mEq/L Carbon Dioxide (21-32) mEq/L Anion Gap (5-15) BUN (7-18) mg/dL Creatinine (0.55-1.02) mg/dL Est Cr Clr Drug Dosing mL/min Estimated GFR (MDRD) (>60) mL/min BUN/Creatinine Ratio (14-18) Glucose (80-115) mg/dL POC Glucose 124 H 60 L 59 L (80-115) mg/dL Calcium (8.5-10.1) mg/dL C-Reactive Protein (<1.0) mg/dL 08/19/20 08/19/20 08/19/20 Range/Units 17:10 19:00 20:18 WBC (3.98-10.04) K/mm3 RBC (3.98-5.22) M/mm3 Hgb (11.2-15.7) gm/dl Hct (34.1-44.9) % MCV (79.4-94.8) fl MCH (25.6-32.2) pg MCHC (32.2-35.5) g/dl RDW Std Deviation (36.4-46.3) fL Plt Count (182-369) K/mm3 MPV (9.4-12.3) fl Neut % (Auto) (34.0-71.1) % Lymph % (Auto) (19.3-51.7) % [place] % (Auto) (4.7-12.5) % Eos % (Auto) (0.7-5.8) Baso % (Auto) (0.1-1.2) % Neut # (Auto) (1.56-6.13) K/mm3 Lymph # (Auto) (1.18-3.74) K/mm3 [place] # (Auto) (0.24-0.36) K/mm3 Eos # (Auto) (0.04-0.36) K/mm3 Baso # (Auto) (0.01-0.08) K/mm3 Sodium 125 L (136-145) mEq/L Potassium 3.4 L (3.5-5.1) mEq/L Chloride 87 L (98-107) mEq/L Carbon Dioxide 28 (21-32) mEq/L Anion Gap 13.4 (5-15) BUN 9 (7-18) mg/dL Creatinine 1.7 H (0.55-1.02) mg/dL Est Cr Clr Drug Dosing 24.70 mL/min Estimated GFR (MDRD) 30 (>60) mL/min BUN/Creatinine Ratio 5.3 L (14-18) Glucose 122 H (80-115) mg/dL POC Glucose 162 H 100 (80-115) mg/dL Calcium 8.0 L (8.5-10.1) mg/dL C-Reactive Protein (<1.0) mg/dL 08/20/20 08/20/20 08/20/20 Range/Units 04:32 04:57 06:39 WBC 5.06 (3.98-10.04) K/mm3 RBC 2.94 L (3.98-5.22) M/mm3 Hgb 8.5 L (11.2-15.7) gm/dl Hct 25.3 L (34.1-44.9) % MCV 86.1 (79.4-94.8) fl MCH 28.9 (25.6-32.2) pg MCHC 33.6 (32.2-35.5) g/dl RDW Std Deviation 48.3 H (36.4-46.3) fL Plt Count 381 H (182-369) K/mm3 MPV 8.9 L (9.4-12.3) fl Neut % (Auto) 81.2 H (34.0-71.1) % Lymph % (Auto) 6.7 L (19.3-51.7) % [place] % (Auto) 11.9 (4.7-12.5) % Eos % (Auto) 0 L (0.7-5.8) Baso % (Auto) 0.2 (0.1-1.2) % Neut # (Auto) 4.11 (1.56-6.13) K/mm3 Lymph # (Auto) 0.34 L (1.18-3.74) K/mm3 [place] # (Auto) 0.60 H (0.24-0.36) K/mm3 Eos # (Auto) 0.00 L (0.04-0.36) K/mm3 Baso # (Auto) 0.01 (0.01-0.08) K/mm3 Sodium 128 L (136-145) mEq/L Potassium 3.3 L (3.5-5.1) mEq/L Chloride 91 L (98-107) mEq/L Carbon Dioxide 27 (21-32) mEq/L Anion Gap 13.3 (5-15) BUN 9 (7-18) mg/dL Creatinine 1.5 H (0.55-1.02) mg/dL Est Cr Clr Drug Dosing 28.00 mL/min Estimated GFR (MDRD) 34 (>60) mL/min BUN/Creatinine Ratio 6.0 L (14-18) Glucose 38 L (80-115) mg/dL POC Glucose 57 L (80-115) mg/dL Calcium 8.3 L (8.5-10.1) mg/dL C-Reactive Protein 4.3 H* (<1.0) mg/dL 08/20/20 08/20/20 Range/Units 07:03 07:36 WBC (3.98-10.04) K/mm3 RBC (3.98-5.22) M/mm3 Hgb (11.2-15.7) gm/dl Hct (34.1-44.9) % MCV (79.4-94.8) fl MCH (25.6-32.2) pg MCHC (32.2-35.5) g/dl RDW Std Deviation (36.4-46.3) fL Plt Count (182-369) K/mm3 MPV (9.4-12.3) fl Neut % (Auto) (34.0-71.1) % Lymph % (Auto) (19.3-51.7) % [place] % (Auto) (4.7-12.5) % Eos % (Auto) (0.7-5.8) Baso % (Auto) (0.1-1.2) % Neut # (Auto) (1.56-6.13) K/mm3 Lymph # (Auto) (1.18-3.74) K/mm3 [place] # (Auto) (0.24-0.36) K/mm3 Eos # (Auto) (0.04-0.36) K/mm3 Baso # (Auto) (0.01-0.08) K/mm3 Sodium (136-145) mEq/L Potassium (3.5-5.1) mEq/L Chloride (98-107) mEq/L Carbon Dioxide (21-32) mEq/L Anion Gap (5-15) BUN (7-18) mg/dL Creatinine (0.55-1.02) mg/dL Est Cr Clr Drug Dosing mL/min Estimated GFR (MDRD) (>60) mL/min BUN/Creatinine Ratio (14-18) Glucose (80-115) mg/dL POC Glucose 59 L 185 H (80-115) mg/dL Calcium (8.5-10.1) mg/dL C-Reactive Protein (<1.0) mg/dL [place] Results Last 24 Hours: Microbiology 08/18/20 23:45 Aerobic Blood Culture - Preliminary Blood - Venous - Lab Draw NO GROWTH AFTER 1 DAY Anaerobic Blood Culture - Preliminary NO GROWTH AFTER 1 DAY 08/18/20 23:30 Aerobic Blood Culture - Preliminary Blood - Venous NO GROWTH AFTER 1 DAY Anaerobic Blood Culture - Preliminary NO GROWTH AFTER 1 DAY Med Orders - Current: Current Medications Acetaminophen (Tylenol) 650 mg PO Q4H PRN PRN Reason: Pain (Mild 1-3)/fever Last Admin: 08/19/20 20:36 Dose: 650 mg Documented by: Amlodipine Besylate (Norvasc) 10 mg PO DAILY [facility] Last Admin: 08/19/20 09:00 Dose: 10 mg Documented by: Aspirin (Halfprin) 81 mg PO DAILY [facility] Last Admin: 08/19/20 08:58 Dose: 81 mg Documented by: Benzonatate (Tessalon Perles) 100 mg PO TID PRN PRN Reason: Cough Buspirone HCl (Buspar) 10 mg PO BID [facility] Last Admin: 08/19/20 20:23 Dose: 10 mg Documented by: Dextrose/Water (Dextrose 50% In Water) 50 ml IVPUSH ASDIRECTED PRN PRN Reason: Hypoglycemia Last Admin: 08/20/20 07:14 Dose: 50 ml Documented by: Enoxaparin Sodium (Lovenox) 30 mg SUBCUT DAILY [facility] Last Admin: 08/19/20 09:00 Dose: 30 mg Documented by: Ceftriaxone Sodium 1 gm/ (Sodium Chloride) 100 mls @ 200 mls/hr IV Q24H [facility] Last Admin: 08/19/20 21:16 Dose: 200 mls/hr Documented by: Sodium Chloride (Sodium Chloride 3%) 500 mls @ 15 mls/hr IV ASDIRECTED [facility] Last Admin: 08/20/20 05:39 Dose: 15 mls/hr Documented by: Insulin Human Lispro (Humalog) 0 unit SUBCUT TIDMEALS [facility]; Protocol Last Admin: 08/19/20 17:34 Dose: Not Given Documented by: Latanoprost (Xalatan 0.005% Oph Soln) 0 ml EYEBOTH BEDTIME [facility] Last Admin: 08/19/20 20:23 Dose: 1 drop Documented by: Metoprolol Tartrate (Lopressor) 100 mg PO BID [facility] Last Admin: 08/19/20 20:24 Dose: 100 mg Documented by: Ondansetron HCl (Zofran) 4 mg IV Q4H PRN PRN Reason: Nausea/Vomiting Discontinued Medications Sodium Chloride (Normal Saline) 1,000 mls @ 500 mls/hr IV ONETIME ONE Stop: 08/18/20 19:10 Last Admin: 08/18/20 17:43 Dose: 500 mls/hr Documented by: Magnesium Sulfate 2 gm/ Premix 50 mls @ 25 mls/hr IV ONETIME ONE Stop: 08/18/20 20:51 Last Admin: 08/18/20 19:16 Dose: 25 mls/hr Documented by: Sodium Chloride (Sodium Chloride 3%) 500 mls @ 15 mls/hr IV ASDIRECTED [facility] Last Admin: 08/18/20 20:59 Dose: 35 mls/hr Documented by: Magnesium Sulfate (Magnesium Sulfate In Water Premix) 2 gm in 50 mls @ 25 mls/hr IV Q2H [facility] Stop: 08/19/20 07:59 Last Admin: 08/19/20 05:29 Dose: 25 mls/hr Documented by: Insulin Glargine (Lantus) 50 unit SUBCUT DAILY [facility] Last Admin: 08/19/20 08:58 Dose: 50 units Documented by: Insulin Glargine (Lantus) 15 unit SUBCUT BID [facility] Last Admin: 08/19/20 20:24 Dose: 15 unit Documented by: Insulin Human Lispro (Humalog) 10 unit SUBCUT TIDPC [facility] Last Admin: 08/19/20 08:58 Dose: Not Given Documented by: Insulin Human Lispro (Humalog) 0 unit SUBCUT TIDPC PRN; Protocol PRN Reason: hyperglcyemia Ondansetron HCl (Zofran) 4 mg IVPUSH ONETIME ONE Stop: 08/18/20 19:22 Last Admin: 08/18/20 19:25 Dose: 4 mg Documented by: Potassium Chloride (Klor-Con M20) 40 meq PO ONETIME ONE Stop: 08/18/20 18:53 Last Admin: 08/18/20 19:14 Dose: 40 meq Documented by: Potassium Chloride (Klor-Con M20) 40 meq PO ONETIME ONE Stop: 08/19/20 03:38 Last Admin: 08/19/20 03:53 Dose: 40 meq Documented by: - Exam Quality Assessment: Supplemental Oxygen General: Alert, Oriented, Cooperative, No Acute Distress HEENT: Pupils Equal, Pupils Reactive, EOMI, Mucous Membr. Moist/[place] Neck: Supple Lungs: Normal Respiratory Effort, Decreased Breath Sounds Cardiovascular: Regular Rate, Regular Rhythm GI/Abdominal Exam: Normal Bowel Sounds, Soft, Non-Tender, No Organomegaly, No Distention, No Abnormal Bruit (Female) Exam: Deferred Back Exam: Normal Inspection, Decreased Range of Motion Extremities: Normal Inspection, Normal Range of Motion, Non-Tender, No Pedal Edema, Normal Capillary Refill Peripheral Pulses: 2+: Dorsalis Pedis (L), Dorsalis Pedis (R) Skin: Warm, Dry, Intact Neurological: No New Focal Deficit Psy/Mental Status: Alert, Normal Affect, Normal Mood Sepsis Event Note - Evaluation Sepsis Screening Result: No Definite Risk - Focused Exam Vital Signs: Vital Signs Temp Pulse Resp BP Pulse Ox 08/20/20 04:23 36.6 C 76 20 132/48 L 93 L 08/20/20 00:39 36.8 C 78 16 140/46 L 91 L 08/19/20 21:14 36.4 C 08/19/20 20:36 38.0 C 08/19/20 20:24 95 140/48 L 08/19/20 20:22 38.0 C 95 18 140/48 L 94 L - Problem List Review Problem List Initiated/Reviewed/Updated: Yes - My Orders Last 24 Hours: My Active Orders 08/19/20 14:37 Consult to Speech Language Pathology [CCO Evaluation and Treatment] [CONS] Bety royal 08/19/20 Dinner Fluid Restriction [DIET] Insulin Lispro [HumaLOG] See Protocol SUBCUT TIDMEALS 08/20/20 04:32 CBC WITH AUTO DIFF [HEME] DAILY 08/20/20 05:00 ESR [SEDIMENTATION RATE AUTO] [HEME] DAILY 08/20/20 06:00 Chest wo Cont [CT] Routine 08/21/20 05:00 BMP [BASIC METABOLIC PANEL,BMP] [CHEM] DAILY CBC WITH AUTO DIFF [HEME] DAILY CRP [C-REACTIVE PROTEIN] [CHEM] DAILY ESR [SEDIMENTATION RATE AUTO] [HEME] DAILY 08/22/20 05:00 BMP [BASIC METABOLIC PANEL,BMP] [CHEM] DAILY CBC WITH AUTO DIFF [HEME] DAILY CRP [C-REACTIVE PROTEIN] [CHEM] DAILY ESR [SEDIMENTATION RATE AUTO] [HEME] DAILY - Plan Plan:: Assessment Severe chronic hyponatremia, improved Bilateral Pleural Effusions R>L seen on CT scan, POA CAP, POA: Right middle lobe and Lingula Hypomagnesemia, resolved Hypokalemia, persistent Hypoalbuminemia Metastatic breast cancer : lungs and liver * Mild symptoms from hyponatremia: Nausea, lethargy, fatigue * 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 * Poor oral intake likely contributing to the above. * Also on a thiazide diuretic, hydrochlorothiazide 12.5 mg daily; has been discontinued hctz * Low serum osmolality, but no urine osmolality or urine sodium available. * Given 500 mL normal saline at the cancer clinic and 1000 mL in the emergency department. * Sodium today is 128; now off hypertonic saline * Will come increased fluid restriction to 1800 ml * Goal: Upper 120s to low 130s * Albumin 2.8-2.6 * Will offer therapeutic thoracentesis; unfortunately she received Lovenox this am before CT scan report came through * Discussed case with Dr. Peoples who will perform therapeutic procedure in the morning * She is already on rocephin 1 gram daily; we will add azithromycin 500 mg IV daily * Sputum Culture with gram stain * IS as directed with bedside pulmonary exercise * Monitor inflammatory markers UTI * Urine done at clinic was positive for nitrites and greater than 50 WBCs per high-powered field * Continue 1 gram Rocephin daily * Urine CX showing GNR Diabetes mellitus, insulin-dependent, not well controlled * Patient states that she has recently had low blood sugars in the mornings. This appears to be secondary to poor intake after starting chemotherapy. * Home dose: Toujeo 68 units every morning, Humalog 10 units in the morning, 15 units in the afternoon, and 25 units in the evening with sliding scale * She drops in the 70s this AM. She is not eating much. We will adjust her insulin regimen. Lantus 15 units BID with Moderate ISS. * Unknown hemoglobin A1c * Had hypoglycemic episode with glucose dropping in the 50s but for the most prt her glucose has been poor controlled * We will adjust insulin regimen to ISS Medium intensity only Renal insufficiency, unknown chronic versus acute * Creatinine 1.7, estimated GFR 30 Hypertension Hyperlipidemia * Blood pressure in the emergency department 147/52. * Home medications include Pravachol, metoprolol, hydrochlorothiazide, and amlodipine Normocytic Normochromic Anemia Plan * Meets criteria for inpatient * Continue current treatment * Routine AM Labs * ISS Medium intensity due to poor intake * Swallow eval Friday due to bag gag reflex * If patient is still here on Friday, we will get dietary consult * Rocephin 1 g every 24 hours for 4 to 5 days * Azithromycin 500 mg IV daily for CAP, POA * May benefit with thoracentesis * PRN decongestant/expectorant * Sputum culture with gram stain * IS as directed * Dr. Peoples consult for therapeutic thoracentesis in AM * VTE prophylaxis with Lovenox-put in a nurse communication to hold in AM * CODE STATUS full code
[2020-08-20] MEDS: Enoxaparin 30 MG/0.3 ML Syringe SUBCUT SCH (08:26)
[2020-08-20] MEDS: Aspirin 81 MG Tab.EC PO SCH (08:26)
[2020-08-20] MEDS: busPIRone 5 MG Tab PO SCH ×2 (08:26→20:20)
[2020-08-20] MEDS: amLODIPine 10 MG Tab PO SCH (08:27)
[2020-08-20] MEDS: Metoprolol Tartrate 100 MG Tab PO SCH ×2 (08:27→20:20)
[2020-08-20] MEDS ORDERED: Potassium Chloride 20 MEQ Tab.ER PO ONE (10:25)
[2020-08-20] MEDS ORDERED: guaiFENesin/Dextromethorphan 100-10 MG/5 ML Soln 5 ML Cup PO PRN (10:45)
[2020-08-20] MEDS: Insulin Lispro 100 Units/ML 3 ML Vial SUBCUT SCH ×3 (10:56→17:20)
[2020-08-20] MEDS: Latanoprost 0.005% Ophth Soln 2.5 ML Bottle EYEBOTH SCH (20:20)
[2020-08-20] MEDS: cefTRIAXone 1 GM in Sodium Chloride 0.9% 100 ML IV SCH (21:07)
--- NOTE | 2020-08-21 07:40 | PCM.PN ---
- General Info Date of Service: 08/21/20 Admission Dx/Problem (Free Text): Admission Diagnosis/Problem Admission Diagnosis/Problem Hyponatremia with decreased serum osmolality Functional Status: Reports: Pain Controlled, Tolerating Diet, Ambulating, Urinating, Incentive Spirometry. Denies: New Symptoms - Review of Systems General: Reports: Weakness, Fatigue. Denies: Fever, Malaise, Chills HEENT: Reports: No Symptoms. Denies: Headaches, Sore Throat Pulmonary: Reports: Shortness of Breath. Denies: Pleuritic Chest Pain, Cough, Sputum, Wheezing Cardiovascular: Reports: No Symptoms. Denies: Chest Pain, Palpitations, Dyspnea on Exertion, Edema Gastrointestinal: Reports: No Symptoms. Denies: Abdominal Pain, Constipation, Diarrhea, Nausea, Vomiting Genitourinary: Reports: No Symptoms. Denies: Pain Musculoskeletal: Reports: No Symptoms Skin: Reports: No Symptoms. Denies: Cyanosis Neurological: Reports: No Symptoms. Denies: Confusion, Difficulty Walking, Gait Disturbance Psychiatric: Reports: No Symptoms - Patient Data Vitals - Most Recent: Last Vital Signs Temp 99.3 F 08/21/20 03:55 Pulse 92 08/21/20 03:55 Resp 16 08/21/20 03:55 BP 140/49 L 08/21/20 03:55 Pulse Ox 92 L 08/21/20 03:55 Weight - Most Recent: 171 lb 3.2 oz I&O - Last 24 Hours: Intake & Output 08/20/20 08/21/20 08/21/20 22:59 06:59 14:59 Intake Total 382 400 Output Total 650 700 Balance -268 -300 Lab Results Last 24 Hours: Laboratory Results - last 24 hr 08/20/20 08/20/20 08/20/20 Range/Units 04:32 04:32 11:42 WBC (3.98-10.04) K/mm3 RBC (3.98-5.22) M/mm3 Hgb (11.2-15.7) gm/dl Hct (34.1-44.9) % MCV (79.4-94.8) fl MCH (25.6-32.2) pg MCHC (32.2-35.5) g/dl RDW Std Deviation (36.4-46.3) fL Plt Count (182-369) K/mm3 MPV (9.4-12.3) fl Neut % (Auto) (34.0-71.1) % Lymph % (Auto) (19.3-51.7) % [place] % (Auto) (4.7-12.5) % Eos % (Auto) (0.7-5.8) Baso % (Auto) (0.1-1.2) % Neut # (Auto) (1.56-6.13) K/mm3 Lymph # (Auto) (1.18-3.74) K/mm3 [place] # (Auto) (0.24-0.36) K/mm3 Eos # (Auto) (0.04-0.36) K/mm3 Baso # (Auto) (0.01-0.08) K/mm3 Manual Slide Review Abnormal smear ESR 108 H (0-20) mm/hr Sodium (136-145) mEq/L Potassium (3.5-5.1) mEq/L Chloride (98-107) mEq/L Carbon Dioxide (21-32) mEq/L Anion Gap (5-15) BUN (7-18) mg/dL Creatinine (0.55-1.02) mg/dL Est Cr Clr Drug Dosing mL/min Estimated GFR (MDRD) (>60) mL/min BUN/Creatinine Ratio (14-18) Glucose (80-115) mg/dL POC Glucose 146 H (80-115) mg/dL Calcium (8.5-10.1) mg/dL C-Reactive Protein (<1.0) mg/dL 08/20/20 08/20/20 08/21/20 Range/Units 17:15 21:13 06:05 WBC 5.46 (3.98-10.04) K/mm3 RBC 2.53 L (3.98-5.22) M/mm3 Hgb 7.3 L* (11.2-15.7) gm/dl Hct 21.9 L (34.1-44.9) % MCV 86.6 (79.4-94.8) fl MCH 28.9 (25.6-32.2) pg MCHC 33.3 (32.2-35.5) g/dl RDW Std Deviation 48.9 H (36.4-46.3) fL Plt Count 402 H (182-369) K/mm3 MPV 8.4 L (9.4-12.3) fl Neut % (Auto) 80.1 H (34.0-71.1) % Lymph % (Auto) 8.4 L (19.3-51.7) % [place] % (Auto) 11.5 (4.7-12.5) % Eos % (Auto) 0 L (0.7-5.8) Baso % (Auto) 0.0 L (0.1-1.2) % Neut # (Auto) 4.37 (1.56-6.13) K/mm3 Lymph # (Auto) 0.46 L (1.18-3.74) K/mm3 [place] # (Auto) 0.63 H (0.24-0.36) K/mm3 Eos # (Auto) 0.00 L (0.04-0.36) K/mm3 Baso # (Auto) 0.00 L (0.01-0.08) K/mm3 Manual Slide Review Abnormal smear ESR (0-20) mm/hr Sodium (136-145) mEq/L Potassium (3.5-5.1) mEq/L Chloride (98-107) mEq/L Carbon Dioxide (21-32) mEq/L Anion Gap (5-15) BUN (7-18) mg/dL Creatinine (0.55-1.02) mg/dL Est Cr Clr Drug Dosing mL/min Estimated GFR (MDRD) (>60) mL/min BUN/Creatinine Ratio (14-18) Glucose (80-115) mg/dL POC Glucose 119 H 123 H (80-115) mg/dL Calcium (8.5-10.1) mg/dL C-Reactive Protein (<1.0) mg/dL 08/21/20 08/21/20 08/21/20 Range/Units 06:05 06:05 06:27 WBC (3.98-10.04) K/mm3 RBC (3.98-5.22) M/mm3 Hgb (11.2-15.7) gm/dl Hct (34.1-44.9) % MCV (79.4-94.8) fl MCH (25.6-32.2) pg MCHC (32.2-35.5) g/dl RDW Std Deviation (36.4-46.3) fL Plt Count (182-369) K/mm3 MPV (9.4-12.3) fl Neut % (Auto) (34.0-71.1) % Lymph % (Auto) (19.3-51.7) % [place] % (Auto) (4.7-12.5) % Eos % (Auto) (0.7-5.8) Baso % (Auto) (0.1-1.2) % Neut # (Auto) (1.56-6.13) K/mm3 Lymph # (Auto) (1.18-3.74) K/mm3 [place] # (Auto) (0.24-0.36) K/mm3 Eos # (Auto) (0.04-0.36) K/mm3 Baso # (Auto) (0.01-0.08) K/mm3 Manual Slide Review ESR 118 H (0-20) mm/hr Sodium 127 L (136-145) mEq/L Potassium 3.6 (3.5-5.1) mEq/L Chloride 91 L (98-107) mEq/L Carbon Dioxide 26 (21-32) mEq/L Anion Gap 13.6 (5-15) BUN 8 (7-18) mg/dL Creatinine 1.4 H (0.55-1.02) mg/dL Est Cr Clr Drug Dosing 29.99 mL/min Estimated GFR (MDRD) 37 (>60) mL/min BUN/Creatinine Ratio 5.7 L (14-18) Glucose 77 L (80-115) mg/dL POC Glucose 70 L (80-115) mg/dL Calcium 7.9 L (8.5-10.1) mg/dL C-Reactive Protein 4.9 H* (<1.0) mg/dL Sravan Results Last 24 Hours: Microbiology 08/18/20 23:45 Aerobic Blood Culture - Preliminary Blood - Venous - Lab Draw NO GROWTH AFTER 2 DAYS Anaerobic Blood Culture - Preliminary NO GROWTH AFTER 2 DAYS 08/18/20 23:30 Aerobic Blood Culture - Preliminary Blood - Venous NO GROWTH AFTER 2 DAYS Anaerobic Blood Culture - Preliminary NO GROWTH AFTER 2 DAYS 08/20/20 17:36 Gram Stain - Final Sputum - Expectorated Sputum Culture - Final 08/19/20 02:00 Urine Culture - Preliminary Urine, Bladder Gram Negative Rods Med Orders - Current: Current Medications Acetaminophen (Tylenol) 650 mg PO Q4H PRN PRN Reason: Pain (Mild 1-3)/fever Last Admin: 08/19/20 20:36 Dose: 650 mg Documented by: Amlodipine Besylate (Norvasc) 10 mg PO DAILY [facility] Last Admin: 08/20/20 08:27 Dose: 10 mg Documented by: Aspirin (Halfprin) 81 mg PO DAILY [facility] Last Admin: 08/20/20 08:26 Dose: 81 mg Documented by: Benzonatate (Tessalon Perles) 100 mg PO TID PRN PRN Reason: Cough Buspirone HCl (Buspar) 10 mg PO BID [facility] Last Admin: 08/20/20 20:20 Dose: 10 mg Documented by: Dextrose/Water (Dextrose 50% In Water) 50 ml IVPUSH ASDIRECTED PRN PRN Reason: Hypoglycemia Last Admin: 08/20/20 07:14 Dose: 50 ml Documented by: Enoxaparin Sodium (Lovenox) 30 mg SUBCUT DAILY [facility] Guaifenesin/Phenylephrine HCl (Robitussin Dm) 10 ml PO Q4H PRN PRN Reason: Cough Ceftriaxone Sodium 1 gm/ (Sodium Chloride) 100 mls @ 200 mls/hr IV Q24H [facility] Last Admin: 08/20/20 21:07 Dose: 200 mls/hr Documented by: Insulin Human Lispro (Humalog) 0 unit SUBCUT TIDMEALS [facility]; Protocol Last Admin: 08/20/20 17:20 Dose: Not Given Documented by: Latanoprost (Xalatan 0.005% Ophth Soln) 0 ml EYEBOTH BEDTIME [facility] Last Admin: 08/20/20 20:20 Dose: 1 drop Documented by: Metoprolol Tartrate (Lopressor) 100 mg PO BID [facility] Last Admin: 08/20/20 20:20 Dose: 100 mg Documented by: Ondansetron HCl (Zofran) 4 mg IV Q4H PRN PRN Reason: Nausea/Vomiting Discontinued Medications Enoxaparin Sodium (Lovenox) 30 mg SUBCUT DAILY [facility] Last Admin: 08/20/20 08:26 Dose: 30 mg Documented by: Sodium Chloride (Normal Saline) 1,000 mls @ 500 mls/hr IV ONETIME ONE Stop: 08/18/20 19:10 Last Admin: 08/18/20 17:43 Dose: 500 mls/hr Documented by: Magnesium Sulfate 2 gm/ Premix 50 mls @ 25 mls/hr IV ONETIME ONE Stop: 08/18/20 20:51 Last Admin: 08/18/20 19:16 Dose: 25 mls/hr Documented by: Sodium Chloride (Sodium Chloride 3%) 500 mls @ 15 mls/hr IV ASDIRECTED [facility] Last Admin: 08/18/20 20:59 Dose: 35 mls/hr Documented by: Magnesium Sulfate (Magnesium Sulfate In Water Premix) 2 gm in 50 mls @ 25 mls/hr IV Q2H [facility] Stop: 08/19/20 07:59 Last Admin: 08/19/20 05:29 Dose: 25 mls/hr Documented by: Sodium Chloride (Sodium Chloride 3%) 500 mls @ 15 mls/hr IV ASDIRECTED [facility] Last Admin: 08/20/20 05:39 Dose: 15 mls/hr Documented by: Insulin Glargine (Lantus) 50 unit SUBCUT DAILY [facility] Last Admin: 08/19/20 08:58 Dose: 50 units Documented by: Insulin Glargine (Lantus) 15 unit SUBCUT BID [facility] Last Admin: 08/19/20 20:24 Dose: 15 unit Documented by: Insulin Human Lispro (Humalog) 10 unit SUBCUT TIDPC [facility] Last Admin: 08/19/20 08:58 Dose: Not Given Documented by: Insulin Human Lispro (Humalog) 0 unit SUBCUT TIDPC PRN; Protocol PRN Reason: hyperglcyemia Ondansetron HCl (Zofran) 4 mg IVPUSH ONETIME ONE Stop: 08/18/20 19:22 Last Admin: 08/18/20 19:25 Dose: 4 mg Documented by: Potassium Chloride (Klor-Con M20) 40 meq PO ONETIME ONE Stop: 08/18/20 18:53 Last Admin: 08/18/20 19:14 Dose: 40 meq Documented by: Potassium Chloride (Klor-Con M20) 40 meq PO ONETIME ONE Stop: 08/19/20 03:38 Last Admin: 08/19/20 03:53 Dose: 40 meq Documented by: Potassium Chloride (Klor-Con M20) 60 meq PO ONETIME ONE Stop: 08/20/20 10:26 Last Admin: 08/20/20 11:08 Dose: 60 meq Documented by: - Exam Quality Assessment: Supplemental Oxygen (2L), DVT Prophylaxis. No: Urine Catheter General: Alert, Oriented, Cooperative, No Acute Distress HEENT: Pupils Equal, Pupils Reactive, Mucous Membr. Moist/[place] Neck: Supple, Trachea Midline Lungs: Clear to Auscultation, Normal Respiratory Effort Cardiovascular: Regular Rate, Regular Rhythm GI/Abdominal Exam: Normal Bowel Sounds, Soft, Non-Tender, No Distention (Female) Exam: Deferred Back Exam: Normal Inspection, Full Range of Motion Extremities: Normal Inspection, Normal Range of Motion, Non-Tender, No Pedal Edema Skin: Warm, Dry, Intact Neurological: No New Focal Deficit Psy/Mental Status: Alert, Normal Affect, Normal Mood Sepsis Event Note - Evaluation Sepsis Screening Result: No Definite Risk - Focused Exam Vital Signs: Vital Signs Temp Pulse Resp BP Pulse Ox 08/21/20 03:55 99.3 F 92 16 140/49 L 92 L 08/20/20 20:20 109 H 146/47 H 08/20/20 20:18 99.9 F 109 H 18 146/47 H 97 - Problem List & Annotations (1) Bilateral pleural effusion SNOMED Code(s): 491083219 Code(s): J90 - PLEURAL EFFUSION, NOT ELSEWHERE CLASSIFIED Status: Acute Priority: High Current Visit: Yes (2) CAP (community acquired pneumonia) SNOMED Code(s): 245084942 Code(s): J18.9 - PNEUMONIA, UNSPECIFIED ORGANISM Status: Acute Priority: High Current Visit: Yes Qualifiers: Laterality: right Lung location: middle lobe of lung Qualified Code(s): J18.9 - Pneumonia, unspecified organism (3) Lung metastases SNOMED Code(s): 14289887 Code(s): C78.00 - SECONDARY MALIGNANT NEOPLASM OF UNSPECIFIED LUNG Status: Chronic Priority: Medium Current Visit: Yes Qualifiers: Laterality: unspecified laterality Qualified Code(s): C78.00 - Secondary malignant neoplasm of unspecified lung (4) Liver metastases Status: Chronic Priority: Medium Current Visit: Yes (5) Hyperlipidemia SNOMED Code(s): 67201067 Code(s): E78.5 - HYPERLIPIDEMIA, UNSPECIFIED Status: Chronic Priority: Medium Current Visit: No Qualifiers: Hyperlipidemia type: unspecified Qualified Code(s): E78.5 - Hyperlipidemia, unspecified (6) Anxiety SNOMED Code(s): 79843582 Code(s): F41.9 - ANXIETY DISORDER, UNSPECIFIED Status: Chronic Priority: Medium Current Visit: No (7) Diabetes mellitus SNOMED Code(s): 03785029 Code(s): E11.9 - TYPE 2 DIABETES MELLITUS WITHOUT COMPLICATIONS Status: Chronic Priority: Medium Current Visit: Yes Qualifiers: Diabetes mellitus type: type 2 Diabetes mellitus residential insulin use: with emt intermediate use Diabetes mellitus complication status: with other specified complication Qualified Code(s): E11.69 - Type 2 diabetes mellitus with other specified complication; 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 (8) Hypertension SNOMED Code(s): 88040392 Code(s): I10 - ESSENTIAL (PRIMARY) HYPERTENSION Status: Chronic Priority: Medium Current Visit: No Qualifiers: Hypertension type: unspecified Qualified Code(s): I10 - Essential (primary) hypertension (9) Hypoalbuminemia SNOMED Code(s): 047132312 Code(s): E88.09 - OTH DISORDERS OF PLASMA-PROTEIN METABOLISM, NEC Status: Acute Priority: Medium Current Visit: Yes (10) Hypokalemia SNOMED Code(s): 31490925 Code(s): E87.6 - HYPOKALEMIA Status: Resolved Current Visit: Yes (11) Hypomagnesemia SNOMED Code(s): 843603399 Code(s): E83.42 - HYPOMAGNESEMIA Status: Resolved Priority: Medium Current Visit: Yes (12) Hyponatremia with decreased serum osmolality SNOMED Code(s): 220852227 Code(s): E87.1 - HYPO-OSMOLALITY AND HYPONATREMIA Status: Acute Priority: High Current Visit: Yes (13) Metastatic breast cancer SNOMED Code(s): 220420596, 053049007 Code(s): C50.919 - MALIGNANT NEOPLASM OF UNSP SITE OF UNSPECIFIED FEMALE BREAST Status: Acute Priority: High Current Visit: Yes (14) Renal insufficiency SNOMED Code(s): 520042027, 545419293 Code(s): N28.9 - DISORDER OF KIDNEY AND URETER, UNSPECIFIED Status: Acute Priority: High Current Visit: Yes (15) UTI (urinary tract infection) SNOMED Code(s): 54955621 Code(s): N39.0 - URINARY TRACT INFECTION, SITE NOT SPECIFIED Status: Acute Priority: High Current Visit: Yes Qualifiers: Urinary tract infection type: acute cystitis Hematuria presence: with hematuria Qualified Code(s): N30.01 - Acute cystitis with hematuria (16) Anemia SNOMED Code(s): 236025795 Code(s): D64.9 - ANEMIA, UNSPECIFIED Status: Acute Priority: High Current Visit: Yes Qualifiers: Anemia type: unspecified type Qualified Code(s): D64.9 - Anemia, unspecified - Problem List Review Problem List Initiated/Reviewed/Updated: Yes - My Orders Last 24 Hours: My Active Orders 08/21/20 07:38 Consult to Sanitation Lead [CONS] Routine - Plan Plan:: Assessment: Severe chronic hyponatremia, improved Bilateral Pleural Effusions R>L seen on CT scan, POA CAP, POA: Right middle lobe and Lingula Hypomagnesemia, resolved Hypokalemia, persistent Hypoalbuminemia Metastatic breast cancer : lungs and liver Normocytic Normochromic Anemia * Mild symptoms from hyponatremia: Nausea, lethargy, fatigue * 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 * Poor oral intake likely contributing to the above. * Also on a thiazide diuretic, hydrochlorothiazide 12.5 mg daily; has been discontinued hctz * Low serum osmolality, but no urine osmolality or urine sodium available. * Given 500 mL normal saline at the cancer clinic and 1000 mL in the emergency department. * Sodium today is 127 * Will come increased fluid restriction to 1800 ml * Goal: Upper 120s to low 130s * Albumin 2.8-2.6 * Dr. 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 This appears to be secondary to poor intake after starting chemotherapy. * Home dose: Toujeo 68 units every morning, Humalog 10 units in the morning, 15 units in the afternoon, and 25 units in the evening with sliding scale * Lantus 15 units BID with Moderate ISS. * Unknown hemoglobin A1c * Had hypoglycemic episode with glucose dropping in the 50s but for the most prt her glucose has been poor controlled Renal insufficiency, unknown chronic versus acute - Improved * Creatinine 1.7-->1.4, estimated GFR 30-->37 Hypertension Hyperlipidemia * Blood pressure in the emergency department 147/52. * Home medications include Pravachol, metoprolol, hydrochlorothiazide, and amlodipine Plan * Meets criteria for inpatient * Continue curren6 treatment * Routine AM Labs * ISS Medium intensity due to poor intake * Swallow eval Friday due to pending * Rocephin 1 g every 24 hours for 4 to 5 days * Start azithromycin Q24hr for CAP * PRN decongestant/expectorant * Start thermotabs * IS as directed * Dr. Peoples consult for therapeutic thoracentesis in AM * Consult cover marker * VTE prophylaxis with Lovenox * CODE STATUS: full code
[2020-08-21] MEDS: Insulin Lispro 100 Units/ML 3 ML Vial SUBCUT SCH ×3 (09:48→18:08)
[2020-08-21] MEDS: busPIRone 5 MG Tab PO SCH ×2 (09:49→21:04)
[2020-08-21] MEDS: Metoprolol Tartrate 100 MG Tab PO SCH ×2 (09:49→21:03)
[2020-08-21] MEDS: Aspirin 81 MG Tab.EC PO SCH (09:49)
[2020-08-21] MEDS: amLODIPine 10 MG Tab PO SCH (09:50)
--- NOTE | 2020-08-21 11:11 | CR ---
PROCEDURE INFORMATION: Exam: XR Chest, 2 Views Exam date and time: 08/19/2020 7:47 AM Age: 70 years old Clinical indication: Other: Metastatic breast cancer, hypoxemia. TECHNIQUE: Imaging protocol: XR of the chest Views: 2 views. COMPARISON: No relevant prior studies available. FINDINGS: Lungs: Patchy opacities in the right upper lobe and left base and left upper lobe may represent multifocal pneumonia versus metastatic disease. Consider chest CT if clinically indicated. . Pleural space: Unremarkable. No pleural effusion. No pneumothorax. Heart/Mediastinum: Unremarkable. No cardiomegaly. Bones/joints: Unremarkable. IMPRESSION: Patchy opacities in the right upper lobe and left base and left upper lobe may represent multifocal pneumonia versus metastatic disease. Consider chest CT if clinically indicated. Thank you for allowing us to participate in the care of your patient. Dictated and Authenticated by: Myron Chery MD 08/19/2020 9:20 AM Central Time ([place] & [place]) [place]
--- NOTE | 2020-08-21 12:57 | CT ---
PROCEDURE INFORMATION: Exam: CT Chest Without Contrast; Diagnostic Exam date and time: 08/20/2020 9:42 AM Age: 70 years old Clinical indication: Cough; Patient HX: Metastatic vs pneumonia TECHNIQUE: Imaging protocol: Diagnostic computed tomography of the chest without contrast. 3D rendering (Not supervised by radiologist): MIP and/or 3D reconstructed images were created by the technologist. Radiation optimization: All CT scans at this facility use at least one of these dose optimization techniques: automated exposure control; mA and/or kV adjustment per patient size (includes targeted exams where dose is matched to clinical indication); or iterative reconstruction. COMPARISON: DX Chest 2V 08/19/2020 7:47 AM FINDINGS: Lungs: Multiple bilateral nodular densities of varying sizes may represent pulmonary metastasis. Largest nodule 17 mm. Consolidation in the right middle lobe and lingula and both lower lobes may represent atelectasis or pneumonia. . Pleural space: Moderate right pleural effusion. Smaller left pleural effusion.. Heart: Coronary artery calcifications may indicate coronary artery disease. Aorta: Unremarkable. No aortic aneurysm. Lymph nodes: Bilateral Hilar masses versus hilar adenopathy. Intravenous contrast would be helpful to differentiate vascular structures from soft tissues. Liver: Multiple low-attenuation masses in the liver of differing sizes most consistent with metastatic disease. Largest measures 2.4 cm. Pancreas: Pancreatic atrophy Bones/joints: Unremarkable. No acute fracture. Soft tissues: Unremarkable IMPRESSION: 1. Moderate right pleural effusion. Smaller left pleural effusion.. . 2. Multiple bilateral nodular densities of varying sizes may represent pulmonary metastasis. For patients at low risk (minimal or absent history of smoking and of other known risk factors), recommend CT Chest at 3-6 months, then consider CT Chest at 18-24 months. For patients at high risk (history of smoking or of other known risk factors), recommend CT Chest at 3-6 months, then CT Chest at 18-24 months. (Reference: Rogelio) References: Rogelio H, et al. Guidelines for Management of Incidental Pulmonary Nodules Detected on CT Images: From the Fleischner Society 2017. Radiology. 2017;284(1):228-243. 3. Consolidation in the right middle lobe and lingula and both lower lobes may represent atelectasis or pneumonia. . 4. Bilateral Hilar masses versus hilar adenopathy. Intravenous contrast would be helpful to differentiate vascular structures from soft tissues. 5. Multiple low-attenuation masses in the liver of differing sizes most consistent with metastatic disease. Largest measures 2.4 cm. Thank you for allowing us to participate in the care of your patient. Dictated and Authenticated by: Myron Chery MD 08/20/2020 11:18 AM Central Time ([place] & [place]) [place]
--- NOTE | 2020-08-21 16:43 | PCM.CONS ---
H&P History of Present Illness - General Date of Service: 08/21/20 Admit Problem/Dx: Admission Diagnosis/Problem Admission Diagnosis/Problem Hyponatremia with decreased serum osmolality Pleural effusion. Source of Information: Patient History Limitations: Reports: No Limitations - History of Present Illness Initial Comments - Free Text/Narative: Patient has metastatic breast cancer and has recently started. She was admitted for hyponatremia and was found to have oxygen requirements. CT chest revealed pulmonary nodules and pleural effusion, moderate on the right and small on the left. There was also associated lower lung collapse on the right. I was asked to perform a thoracentesis. Onset of Symptoms: Reports: Gradual Duration of Symptoms: Reports: Day(s): (several) Location: Reports: Other (lung) Improves with: Reports: None Worsens with: Reports: None - Related Data Allergies/Adverse Reactions: Allergies Allergy/AdvReac Type Severity Reaction Status Date / Time cefprozil [From Cefzil] Allergy Severe Rash Verified 08/19/20 07:06 Penicillins Allergy Severe Rash Verified 08/19/20 07:06 Home Medications: Home Meds Acetaminophen [Tylenol] 650 mg PO Q6H PRN 08/18/20 [History] Aspirin [Halfprin] 81 mg PO DAILY 08/18/20 [History] Benzonatate [Tessalon Perle] 1 tab PO TID PRN 08/18/20 [History] Calcium Carbonate [Calcium] 500 mg PO ASDIRECTED 08/18/20 [History] Cyanocobalamin (Vitamin B12) [Vitamin B12] 500 mcg PO DAILY 08/18/20 [History] Insulin Glargine,Hum.Rec.Anlog [Hari Hammonds] 68 units INJECT DAILY 08/18/20 [History] Insulin Lispro [Humalog Kwikpen U-100] 10 units INJECT DAILY 08/18/20 [History] Insulin Lispro [Humalog Kwikpen U-100] 15 unit INJECT 1200 08/18/20 [History] Insulin Lispro [Humalog Kwikpen U-100] 25 unit INJECT 1700 08/18/20 [History] LORazepam [Ativan] 1 mg PO DAILY 08/18/20 [History] Latanoprost [Xalatan 0.005% Ophth Soln] 1 drop TOP BEDTIME 08/18/20 [History] Lutein/Minerals/Vit A,C & E [Ocuvite] 1 tab PO DAILY 08/18/20 [History] Metoprolol Tartrate [Lopressor] 100 mg PO BID 08/18/20 [History] Ondansetron [Zofran ODT] 4 mg PO Q6H PRN 08/18/20 [History] Promethazine [Phenergan] 0.2 mg TOP Q6H PRN 08/18/20 [History] amLODIPine Besylate [Norvasc] 10 mg PO DAILY 08/18/20 [History] busPIRone [Buspar] 10 mg PO BID 08/18/20 [History] hydroCHLOROthiazide [Hydrochlorothiazide] 12.5 mg PO DAILY 08/18/20 [History] lidocaine HCL [Lidocaine HCl Viscous] 30 ml PO Q6H PRN 08/18/20 [History] Past Medical History HEENT History: Reports: Hard of Hearing, Impaired Vision Other HEENT History: wears glasses and bilateral hearing aides Cardiovascular History: Reports: Afib, CAD, [place], Stents, Other (See Below) Other Cardiovascular History: CABG Respiratory History: Reports: Sleep Apnea, Other (See Below) Genitourinary History: Reports: Chronic Renal Insuffiency 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 Last chemo 08/18/20. - Infectious Disease History Infectious Disease History: Reports: Influenza, Measles - Past Surgical History Female Surgical History: Reports: Mastectomy Social & Family History - Family History Family Medical History: No Pertinent Family History - Tobacco Use Tobacco Use Status *Q: Never Tobacco User Second Hand Smoke Exposure: No - Caffeine Use Caffeine Use: Reports: Soda - Recreational Drug Use Recreational Drug Use: No H&P Review of Systems - Review of Systems: Review Of Systems: See Below General: Reports: No Symptoms HEENT: Reports: No Symptoms Pulmonary: Reports: Other (oxygen requirement) Cardiovascular: Reports: No Symptoms Gastrointestinal: Reports: No Symptoms Exam - Exam Exam: See Below - Vital Signs Vital Signs: Last Vital Signs Temp 100.9 F H 08/21/20 11:51 Pulse 77 08/21/20 11:51 Resp 16 08/21/20 11:51 BP 98/40 L 08/21/20 11:51 Pulse Ox 92 L 08/21/20 11:51 Weight: 77.564 kg - Exam General: Alert, Oriented, Cooperative Lungs: Decreased Breath Sounds (basilar) Cardiovascular: Regular Rate, Regular Rhythm - Patient Data Lab Results Last 24 hrs: Laboratory Results - last 24 hr 08/20/20 08/20/20 08/21/20 Range/Units 17:15 21:13 06:05 WBC 5.46 (3.98-10.04) K/mm3 RBC 2.53 L (3.98-5.22) M/mm3 Hgb 7.3 L* (11.2-15.7) gm/dl Hct 21.9 L (34.1-44.9) % MCV 86.6 (79.4-94.8) fl MCH 28.9 (25.6-32.2) pg MCHC 33.3 (32.2-35.5) g/dl RDW Std Deviation 48.9 H (36.4-46.3) fL Plt Count 402 H (182-369) K/mm3 MPV 8.4 L (9.4-12.3) fl Neut % (Auto) 80.1 H (34.0-71.1) % Lymph % (Auto) 8.4 L (19.3-51.7) % Foard % (Auto) 11.5 (4.7-12.5) % Eos % (Auto) 0 L (0.7-5.8) Baso % (Auto) 0.0 L (0.1-1.2) % Neut # (Auto) 4.37 (1.56-6.13) K/mm3 Lymph # (Auto) 0.46 L (1.18-3.74) K/mm3 Foard # (Auto) 0.63 H (0.24-0.36) K/mm3 Eos # (Auto) 0.00 L (0.04-0.36) K/mm3 Baso # (Auto) 0.00 L (0.01-0.08) K/mm3 Manual Slide Review Abnormal smear ESR (0-20) mm/hr Sodium (136-145) mEq/L Potassium (3.5-5.1) mEq/L Chloride (98-107) mEq/L Carbon Dioxide (21-32) mEq/L Anion Gap (5-15) BUN (7-18) mg/dL Creatinine (0.55-1.02) mg/dL Est Cr Clr Drug Dosing mL/min Estimated GFR (MDRD) (>60) mL/min BUN/Creatinine Ratio (14-18) Glucose (80-115) mg/dL POC Glucose 119 H 123 H (80-115) mg/dL Calcium (8.5-10.1) mg/dL C-Reactive Protein (<1.0) mg/dL 08/21/20 08/21/20 08/21/20 Range/Units 06:05 06:05 06:27 WBC (3.98-10.04) K/mm3 RBC (3.98-5.22) M/mm3 Hgb (11.2-15.7) gm/dl Hct (34.1-44.9) % MCV (79.4-94.8) fl MCH (25.6-32.2) pg MCHC (32.2-35.5) g/dl RDW Std Deviation (36.4-46.3) fL Plt Count (182-369) K/mm3 MPV (9.4-12.3) fl Neut % (Auto) (34.0-71.1) % Lymph % (Auto) (19.3-51.7) % Foard % (Auto) (4.7-12.5) % Eos % (Auto) (0.7-5.8) Baso % (Auto) (0.1-1.2) % Neut # (Auto) (1.56-6.13) K/mm3 Lymph # (Auto) (1.18-3.74) K/mm3 Foard # (Auto) (0.24-0.36) K/mm3 Eos # (Auto) (0.04-0.36) K/mm3 Baso # (Auto) (0.01-0.08) K/mm3 Manual Slide Review ESR 118 H (0-20) mm/hr Sodium 127 L (136-145) mEq/L Potassium 3.6 (3.5-5.1) mEq/L Chloride 91 L (98-107) mEq/L Carbon Dioxide 26 (21-32) mEq/L Anion Gap 13.6 (5-15) BUN 8 (7-18) mg/dL Creatinine 1.4 H (0.55-1.02) mg/dL Est Cr Clr Drug Dosing 29.99 mL/min Estimated GFR (MDRD) 37 (>60) mL/min BUN/Creatinine Ratio 5.7 L (14-18) Glucose 77 L (80-115) mg/dL POC Glucose 70 L (80-115) mg/dL Calcium 7.9 L (8.5-10.1) mg/dL C-Reactive Protein 4.9 H* (<1.0) mg/dL 08/21/20 08/21/20 08/21/20 Range/Units 06:47 11:49 13:00 WBC (3.98-10.04) K/mm3 RBC (3.98-5.22) M/mm3 Hgb 7.7 L (11.2-15.7) gm/dl Hct 23.3 L (34.1-44.9) % MCV (79.4-94.8) fl MCH (25.6-32.2) pg MCHC (32.2-35.5) g/dl RDW Std Deviation (36.4-46.3) fL Plt Count (182-369) K/mm3 MPV (9.4-12.3) fl Neut % (Auto) (34.0-71.1) % Lymph % (Auto) (19.3-51.7) % Foard % (Auto) (4.7-12.5) % Eos % (Auto) (0.7-5.8) Baso % (Auto) (0.1-1.2) % Neut # (Auto) (1.56-6.13) K/mm3 Lymph # (Auto) (1.18-3.74) K/mm3 Foard # (Auto) (0.24-0.36) K/mm3 Eos # (Auto) (0.04-0.36) K/mm3 Baso # (Auto) (0.01-0.08) K/mm3 Manual Slide Review ESR (0-20) mm/hr Sodium (136-145) mEq/L Potassium (3.5-5.1) mEq/L Chloride (98-107) mEq/L Carbon Dioxide (21-32) mEq/L Anion Gap (5-15) BUN (7-18) mg/dL Creatinine (0.55-1.02) mg/dL Est Cr Clr Drug Dosing mL/min Estimated GFR (MDRD) (>60) mL/min BUN/Creatinine Ratio (14-18) Glucose (80-115) mg/dL POC Glucose 97 81 (80-115) mg/dL Calcium (8.5-10.1) mg/dL C-Reactive Protein (<1.0) mg/dL Result Diagrams: 08/21/20 13:00 08/21/20 06:05 Sravan Results Last 24 hrs: Microbiology 08/19/20 02:00 Urine Culture - Preliminary Urine, Bladder Gram Negative Rods 08/20/20 06:45 Gram Stain - Final Sputum - Expectorated Sputum Culture - Final 08/18/20 23:45 Aerobic Blood Culture - Preliminary Blood - Venous - Lab Draw NO GROWTH AFTER 2 DAYS Anaerobic Blood Culture - Preliminary NO GROWTH AFTER 2 DAYS 08/18/20 23:30 Aerobic Blood Culture - Preliminary Blood - Venous NO GROWTH AFTER 2 DAYS Anaerobic Blood Culture - Preliminary NO GROWTH AFTER 2 DAYS 08/20/20 17:36 Gram Stain - Final Sputum - Expectorated Sputum Culture - Final Sepsis Event Note - Evaluation Sepsis Screening Result: No Definite Risk - Focused Exam Vital Signs: Vital Signs Temp Pulse Resp BP Pulse Ox 08/21/20 11:51 100.9 F H 77 16 98/40 L 92 L 08/21/20 09:51 139/50 L 08/21/20 09:50 139/50 L 08/21/20 09:49 95 139/50 L 08/21/20 07:54 100.0 F 95 20 137/48 L 89 L Consult PN Assessment/Plan Procedures: Procedures MICROBE SUSCEPTIBLE SRAVAN (07/04/15) URINE BACTERIA CULTURE (07/04/15) URINE CULTURE/COLONY COUNT (07/04/15) Problem List Initiated/Reviewed/Updated: No Plan: Patient has symptomatic right pleural effusion. Now s/p thoracentesis. 800cc o ut. No immediate complications. We will obtain post procedure chest xray. - other management per primary - call with any questions.
--- NOTE | 2020-08-21 17:33 | PROC ---
DATE OF OPERATION: 08/21/2020 SURGEON: Lizzie Gonzales MD PREOPERATIVE DIAGNOSIS: Symptomatic right pleural effusion. POSTOPERATIVE DIAGNOSIS: Symptomatic right pleural effusion. OPERATION PERFORMED: Thoracentesis, ultrasound-guided. TOTAL FLUID REMOVED: 800 mL. COMPLICATIONS: None. INDICATION AND CONSENT: The patient is a 70-year-old female with metastatic breast cancer to the lungs. The patient presented for hyponatremia, was found to have desaturations requiring oxygen. CT chest was performed that revealed metastasis to the lungs as well as medium pleural effusion on the right side with collapsed right lower lobe and middle lobe and small pleural effusion on the left side. Due to collapsed lung on the right side and the fact that the patient requires oxygen, the patient was deemed to be symptomatic; therefore, was asked to perform a thoracentesis on this patient. I discussed with the patient risks, benefits, and alternatives and informed consent was obtained. DETAILS OF PROCEDURE: Ultrasound was used to locate an area in the right lateral chest that had a deepest fluid pocket. Then, the patient was placed in seated position with hand lying on the table. Then, the 7th rib space in the right posterior axillary line area was marked and then was prepped and draped in the usual sterile fashion. Time-out was performed prior to the start of the procedure. We began the procedure by injecting local anesthetic consisting of 1% lidocaine. An injection was made such that the periosteum above the rib was the tract that was anesthetized. Good amount of lidocaine, about 10 mL were injected in this tract. Then, a stab incision was made and then a paracentesis catheter was guided into the chest cavity with immediate flush of ascitic fluid. Once this was flushed, the needle was removed and the catheter was slid over the needle into the chest. We pulled about 50 mL for studies and about 750 additional milliliters were drained from the chest. Total amount of fluid was about 800 mL. Then, at the end of the drainage, catheter was pulled out. Pressure was held and a Band-Aid was applied. The patient tolerated the procedure well. No complication during or after the procedure. Chest x-ray will be obtained to rule out pneumothorax. MMODAL /[id number] [facility]ITALMemo
[2020-08-21] MEDS: Sodium Chloride/Potassium Chloride Tab PO SCH ×2 (18:50→21:15)
[2020-08-21] MEDS: Azithromycin 500 MG in Sodium Chloride 0.9% 250 ML IV SCH (18:50)
[2020-08-21] MEDS: Acetaminophen 325 MG Tab PO PRN (21:02)
[2020-08-21] MEDS: Enoxaparin 30 MG/0.3 ML Syringe SUBCUT SCH (21:05)
[2020-08-21] MEDS: Latanoprost 0.005% Ophth Soln 2.5 ML Bottle EYEBOTH SCH (21:05)
[2020-08-21] MEDS: cefTRIAXone 1 GM in Sodium Chloride 0.9% 100 ML IV SCH (21:06)
[2020-08-22] MEDS: Insulin Lispro 100 Units/ML 3 ML Vial SUBCUT SCH ×3 (06:11→17:49)
--- NOTE | 2020-08-22 07:25 | PCM.PN ---
- General Info Date of Service: 08/22/20 Admission Dx/Problem (Free Text): Admission Diagnosis/Problem Admission Diagnosis/Problem Hyponatremia with decreased serum osmolality Pleural effusion. Functional Status: Reports: Pain Controlled, Tolerating Diet, Ambulating, Ur inating, Incentive Spirometry. Denies: New Symptoms - Review of Systems General: Reports: No Symptoms. Denies: Fever, Chills HEENT: Reports: No Symptoms. Denies: Headaches, Sore Throat Pulmonary: Reports: Shortness of Breath, Cough. Denies: Sputum, Wheezing Cardiovascular: Reports: No Symptoms, Dyspnea on Exertion. Denies: Chest Pain, Palpitations Gastrointestinal: Reports: Diarrhea (occasional - depends on what she eats). Denies: Abdominal Pain, Constipation Genitourinary: Reports: No Symptoms. Denies: Dysuria, Burning, Pain Musculoskeletal: Reports: No Symptoms Skin: Reports: No Symptoms. Denies: Cyanosis Neurological: Reports: No Symptoms. Denies: Confusion, Difficulty Walking, Gait Disturbance Psychiatric: Reports: No Symptoms - Patient Data Vitals - Most Recent: Last Vital Signs Temp 98.2 F 08/22/20 05:19 Pulse 80 08/22/20 05:19 Resp 16 08/22/20 05:19 BP 121/52 L 08/22/20 05:19 Pulse Ox 92 L 08/22/20 05:19 Weight - Most Recent: 169 lb 1.6 oz I&O - Last 24 Hours: Intake & Output 08/21/20 08/22/20 08/22/20 22:59 06:59 14:59 Intake Total 950 200 Output Total 1325 350 Balance -375 -150 Lab Results Last 24 Hours: Laboratory Results - last 24 hr 08/21/20 08/21/20 08/21/20 Range/Units 06:05 06:47 11:49 WBC (3.98-10.04) K/mm3 RBC (3.98-5.22) M/mm3 Hgb (11.2-15.7) gm/dl Hct (34.1-44.9) % MCV (79.4-94.8) fl MCH (25.6-32.2) pg MCHC (32.2-35.5) g/dl RDW Std Deviation (36.4-46.3) fL Plt Count (182-369) K/mm3 MPV (9.4-12.3) fl Neut % (Auto) (34.0-71.1) % Lymph % (Auto) (19.3-51.7) % [place] % (Auto) (4.7-12.5) % Eos % (Auto) (0.7-5.8) Baso % (Auto) (0.1-1.2) % Neut # (Auto) (1.56-6.13) K/mm3 Lymph # (Auto) (1.18-3.74) K/mm3 [place] # (Auto) (0.24-0.36) K/mm3 Eos # (Auto) (0.04-0.36) K/mm3 Baso # (Auto) (0.01-0.08) K/mm3 ESR 118 H (0-20) mm/hr POC Glucose 97 81 (80-115) mg/dL Body Fluid Site Fluid Type Fluid Volume ML Fluid Color Fluid Appearance Fluid WBC (0.20-0.60) k/mm*3 Fluid RBC (0.00-0.010) 10*6/uL Fluid Diff Comment Fluid Seg Neutrophils (0-25) % Fluid Lymphocytes (0-78) % Fluid Macrophages Fluid Glucose mg/dL Fluid Total Protein gm/dl Fluid LDH U/L 08/21/20 08/21/20 08/21/20 Range/Units 13:00 16:30 16:30 WBC (3.98-10.04) K/mm3 RBC (3.98-5.22) M/mm3 Hgb 7.7 L (11.2-15.7) gm/dl Hct 23.3 L (34.1-44.9) % MCV (79.4-94.8) fl MCH (25.6-32.2) pg MCHC (32.2-35.5) g/dl RDW Std Deviation (36.4-46.3) fL Plt Count (182-369) K/mm3 MPV (9.4-12.3) fl Neut % (Auto) (34.0-71.1) % Lymph % (Auto) (19.3-51.7) % [place] % (Auto) (4.7-12.5) % Eos % (Auto) (0.7-5.8) Baso % (Auto) (0.1-1.2) % Neut # (Auto) (1.56-6.13) K/mm3 Lymph # (Auto) (1.18-3.74) K/mm3 [place] # (Auto) (0.24-0.36) K/mm3 Eos # (Auto) (0.04-0.36) K/mm3 Baso # (Auto) (0.01-0.08) K/mm3 ESR (0-20) mm/hr POC Glucose (80-115) mg/dL Body Fluid Site Fluid Type Pleural fluid Pleural fluid Fluid Volume ML Fluid Color Fluid Appearance Fluid WBC (0.20-0.60) k/mm*3 Fluid RBC (0.00-0.010) 10*6/uL Fluid Diff Comment Fluid Seg Neutrophils (0-25) % Fluid Lymphocytes (0-78) % Fluid Macrophages Fluid Glucose 116 mg/dL Fluid Total Protein 2.9 gm/dl Fluid LDH U/L 08/21/20 08/21/20 08/21/20 Range/Units 16:30 16:30 16:42 WBC (3.98-10.04) K/mm3 RBC (3.98-5.22) M/mm3 Hgb (11.2-15.7) gm/dl Hct (34.1-44.9) % MCV (79.4-94.8) fl MCH (25.6-32.2) pg MCHC (32.2-35.5) g/dl RDW Std Deviation (36.4-46.3) fL Plt Count (182-369) K/mm3 MPV (9.4-12.3) fl Neut % (Auto) (34.0-71.1) % Lymph % (Auto) (19.3-51.7) % [place] % (Auto) (4.7-12.5) % Eos % (Auto) (0.7-5.8) Baso % (Auto) (0.1-1.2) % Neut # (Auto) (1.56-6.13) K/mm3 Lymph # (Auto) (1.18-3.74) K/mm3 [place] # (Auto) (0.24-0.36) K/mm3 Eos # (Auto) (0.04-0.36) K/mm3 Baso # (Auto) (0.01-0.08) K/mm3 ESR (0-20) mm/hr POC Glucose 137 H (80-115) mg/dL Body Fluid Site Pleural Fluid Type Pleural fluid Fluid Volume 824 ML Fluid Color Yellow Fluid Appearance Slightly cloudy Fluid WBC 0.14 L (0.20-0.60) k/mm*3 Fluid RBC (0.00-0.010) 10*6/uL Fluid Diff Comment Fluid Seg Neutrophils 14.0 (0-25) % Fluid Lymphocytes 21.0 (0-78) % Fluid Macrophages 65 Fluid Glucose mg/dL Fluid Total Protein gm/dl Fluid LDH 102 U/L 08/21/20 08/22/20 08/22/20 Range/Units 21:01 05:17 06:36 WBC 4.08 (3.98-10.04) K/mm3 RBC 2.56 L (3.98-5.22) M/mm3 Hgb 7.2 L* (11.2-15.7) gm/dl Hct 22.5 L (34.1-44.9) % MCV 87.9 (79.4-94.8) fl MCH 28.1 (25.6-32.2) pg MCHC 32.0 L (32.2-35.5) g/dl RDW Std Deviation 50.4 H (36.4-46.3) fL Plt Count 419 H (182-369) K/mm3 MPV 8.4 L (9.4-12.3) fl Neut % (Auto) 75.0 H (34.0-71.1) % Lymph % (Auto) 11.0 L (19.3-51.7) % [place] % (Auto) 13.5 H (4.7-12.5) % Eos % (Auto) 0 L (0.7-5.8) Baso % (Auto) 0.0 L (0.1-1.2) % Neut # (Auto) 3.06 (1.56-6.13) K/mm3 Lymph # (Auto) 0.45 L (1.18-3.74) K/mm3 [place] # (Auto) 0.55 H (0.24-0.36) K/mm3 Eos # (Auto) 0.00 L (0.04-0.36) K/mm3 Baso # (Auto) 0.00 L (0.01-0.08) K/mm3 ESR (0-20) mm/hr POC Glucose 130 H 98 (80-115) mg/dL Body Fluid Site Fluid Type Fluid Volume ML Fluid Color Fluid Appearance Fluid WBC (0.20-0.60) k/mm*3 Fluid RBC (0.00-0.010) 10*6/uL Fluid Diff Comment Fluid Seg Neutrophils (0-25) % Fluid Lymphocytes (0-78) % Fluid Macrophages Fluid Glucose mg/dL Fluid Total Protein gm/dl Fluid LDH U/L Sravan Results Last 24 Hours: Microbiology 08/18/20 23:45 Aerobic Blood Culture - Preliminary Blood - Venous - Lab Draw NO GROWTH AFTER 3 DAYS Anaerobic Blood Culture - Preliminary NO GROWTH AFTER 3 DAYS 08/18/20 23:30 Aerobic Blood Culture - Preliminary Blood - Venous NO GROWTH AFTER 3 DAYS Anaerobic Blood Culture - Preliminary NO GROWTH AFTER 3 DAYS 08/21/20 16:30 Gram Stain - Final Pleural Fluid 08/19/20 02:00 Urine Culture - Preliminary Urine, Bladder Escherichia Coli Gram Negative Rods#2 08/20/20 06:45 Gram Stain - Final Sputum - Expectorated Sputum Culture - Final Med Orders - Current: Current Medications Acetaminophen (Tylenol) 650 mg PO Q4H PRN PRN Reason: Pain (Mild 1-3)/fever Last Admin: 08/21/20 21:02 Dose: 650 mg Documented by: Amlodipine Besylate (Norvasc) 10 mg PO DAILY [facility] Last Admin: 08/21/20 09:50 Dose: 10 mg Documented by: Aspirin (Halfprin) 81 mg PO DAILY [facility] Last Admin: 08/21/20 09:49 Dose: 81 mg Documented by: Benzonatate (Tessalon Perles) 100 mg PO TID PRN PRN Reason: Cough Buspirone HCl (Buspar) 10 mg PO BID [facility] Last Admin: 08/21/20 21:04 Dose: 10 mg Documented by: Dextrose/Water (Dextrose 50% In Water) 50 ml IVPUSH ASDIRECTED PRN PRN Reason: Hypoglycemia Last Admin: 08/20/20 07:14 Dose: 50 ml Documented by: Enoxaparin Sodium (Lovenox) 30 mg SUBCUT BEDTIME [facility] Last Admin: 08/21/20 21:05 Dose: 30 mg Documented by: Guaifenesin/Phenylephrine HCl (Robitussin Dm) 10 ml PO Q4H PRN PRN Reason: Cough Ceftriaxone Sodium 1 gm/ (Sodium Chloride) 100 mls @ 200 mls/hr IV Q24H [facility] Last Admin: 08/21/20 21:06 Dose: 200 mls/hr Documented by: Azithromycin 500 mg/ Sodium (Chloride) 250 mls @ 250 mls/hr IV Q24H [facility] Last Admin: 08/21/20 18:50 Dose: 250 mls/hr Documented by: Insulin Human Lispro (Humalog) 0 unit SUBCUT TIDMEALS [facility]; Protocol Last Admin: 08/22/20 06:11 Dose: Not Given Documented by: Latanoprost (Xalatan 0.005% Ophth Soln) 0 ml EYEBOTH BEDTIME [facility] Last Admin: 08/21/20 21:05 Dose: 1 drop Documented by: Metoprolol Tartrate (Lopressor) 100 mg PO BID [facility] Last Admin: 08/21/20 21:03 Dose: 100 mg Documented by: Ondansetron HCl (Zofran) 4 mg IV Q4H PRN PRN Reason: Nausea/Vomiting Oral Electrolytes (Thermotabs) 2 each PO BID [facility] Last Admin: 08/21/20 21:15 Dose: 2 each Documented by: Discontinued Medications Enoxaparin Sodium (Lovenox) 30 mg SUBCUT DAILY [facility] Last Admin: 08/20/20 08:26 Dose: 30 mg Documented by: Sodium Chloride (Normal Saline) 1,000 mls @ 500 mls/hr IV ONETIME ONE Stop: 08/18/20 19:10 Last Admin: 08/18/20 17:43 Dose: 500 mls/hr Documented by: Magnesium Sulfate 2 gm/ Premix 50 mls @ 25 mls/hr IV ONETIME ONE Stop: 08/18/20 20:51 Last Admin: 08/18/20 19:16 Dose: 25 mls/hr Documented by: Sodium Chloride (Sodium Chloride 3%) 500 mls @ 15 mls/hr IV ASDIRECTED [facility] Last Admin: 08/18/20 20:59 Dose: 35 mls/hr Documented by: Magnesium Sulfate (Magnesium Sulfate In Water Premix) 2 gm in 50 mls @ 25 mls/hr IV Q2H [facility] Stop: 08/19/20 07:59 Last Admin: 08/19/20 05:29 Dose: 25 mls/hr Documented by: Sodium Chloride (Sodium Chloride 3%) 500 mls @ 15 mls/hr IV ASDIRECTED [facility] Last Admin: 08/20/20 05:39 Dose: 15 mls/hr Documented by: Insulin Glargine (Lantus) 50 unit SUBCUT DAILY [facility] Last Admin: 08/19/20 08:58 Dose: 50 units Documented by: Insulin Glargine (Lantus) 15 unit SUBCUT BID [facility] Last Admin: 08/19/20 20:24 Dose: 15 unit Documented by: Insulin Human Lispro (Humalog) 10 unit SUBCUT TIDPC [facility] Last Admin: 08/19/20 08:58 Dose: Not Given Documented by: Insulin Human Lispro (Humalog) 0 unit SUBCUT TIDPC PRN; Protocol PRN Reason: hyperglcyemia Ondansetron HCl (Zofran) 4 mg IVPUSH ONETIME ONE Stop: 08/18/20 19:22 Last Admin: 08/18/20 19:25 Dose: 4 mg Documented by: Potassium Chloride (Klor-Con M20) 40 meq PO ONETIME ONE Stop: 08/18/20 18:53 Last Admin: 08/18/20 19:14 Dose: 40 meq Documented by: Potassium Chloride (Klor-Con M20) 40 meq PO ONETIME ONE Stop: 08/19/20 03:38 Last Admin: 08/19/20 03:53 Dose: 40 meq Documented by: Potassium Chloride (Klor-Con M20) 60 meq PO ONETIME ONE Stop: 08/20/20 10:26 Last Admin: 08/20/20 11:08 Dose: 60 meq Documented by: - Exam Quality Assessment: Supplemental Oxygen General: Alert, Oriented, Cooperative, No Acute Distress HEENT: Pupils Equal, Pupils Reactive, Mucous Membr. Moist/[place] Neck: Supple, Trachea Midline Lungs: Normal Respiratory Effort, Decreased Breath Sounds Cardiovascular: Regular Rate, Regular Rhythm GI/Abdominal Exam: Normal Bowel Sounds, Soft, Non-Tender, No Distention (Female) Exam: Deferred Back Exam: Normal Inspection, Full Range of Motion Extremities: Normal Inspection, Normal Range of Motion, Non-Tender, No Pedal Edema Skin: Warm, Dry, Intact Neurological: No New Focal Deficit Psy/Mental Status: Alert, Normal Affect, Normal Mood Sepsis Event Note - Evaluation Sepsis Screening Result: No Definite Risk - Focused Exam Vital Signs: Vital Signs Temp Pulse Resp BP Pulse Ox 08/22/20 05:19 98.2 F 80 16 121/52 L 92 L 08/22/20 00:47 98.1 F 71 16 110/77 95 08/21/20 21:03 98 133/63 08/21/20 20:59 100.4 F 98 16 133/53 L 89 L - Problem List & Annotations (1) Bilateral pleural effusion SNOMED Code(s): 297269139 Code(s): J90 - PLEURAL EFFUSION, NOT ELSEWHERE CLASSIFIED Status: Acute Priority: High Current Visit: Yes (2) CAP (community acquired pneumonia) SNOMED Code(s): 549105406 Code(s): J18.9 - PNEUMONIA, UNSPECIFIED ORGANISM Status: Acute Priority: High Current Visit: Yes Qualifiers: Laterality: right Lung location: middle lobe of lung Qualified Code(s): J18.9 - Pneumonia, unspecified organism (3) Lung metastases SNOMED Code(s): 40536064 Code(s): C78.00 - SECONDARY MALIGNANT NEOPLASM OF UNSPECIFIED LUNG Status: Chronic Priority: Medium Current Visit: Yes Qualifiers: Laterality: unspecified laterality Qualified Code(s): C78.00 - Secondary malignant neoplasm of unspecified lung (4) Liver metastases Status: Chronic Priority: Medium Current Visit: Yes (5) Hyperlipidemia SNOMED Code(s): 62994105 Code(s): E78.5 - HYPERLIPIDEMIA, UNSPECIFIED Status: Chronic Priority: Medium Current Visit: No Qualifiers: Hyperlipidemia type: unspecified Qualified Code(s): E78.5 - Hyperlipidemia, unspecified (6) Anxiety SNOMED Code(s): 98909901 Code(s): F41.9 - ANXIETY DISORDER, UNSPECIFIED Status: Chronic Priority: Medium Current Visit: No (7) Diabetes mellitus SNOMED Code(s): 78560027 Code(s): E11.9 - TYPE 2 DIABETES MELLITUS WITHOUT COMPLICATIONS Status: Chronic Priority: Medium Current Visit: Yes Qualifiers: Diabetes mellitus type: type 2 Diabetes mellitus fci insulin use: with fci use Diabetes mellitus complication status: with other specified complication Qualified Code(s): E11.69 - Type 2 diabetes mellitus with other specified complication; Z79.4 - roasterman (current) use of insulin (8) Hypertension SNOMED Code(s): 85857496 Code(s): I10 - ESSENTIAL (PRIMARY) HYPERTENSION Status: Chronic Priority: Medium Current Visit: No Qualifiers: Hypertension type: unspecified Qualified Code(s): I10 - Essential (primary) hypertension (9) Hypoalbuminemia SNOMED Code(s): 877089432 Code(s): E88.09 - OTH DISORDERS OF PLASMA-PROTEIN METABOLISM, NEC Status: Acute Priority: Medium Current Visit: Yes (10) Hypokalemia SNOMED Code(s): 85948948 Code(s): E87.6 - HYPOKALEMIA Status: Resolved Current Visit: Yes (11) Hypomagnesemia SNOMED Code(s): 218660976 Code(s): E83.42 - HYPOMAGNESEMIA Status: Resolved Priority: Medium Current Visit: Yes (12) Hyponatremia with decreased serum osmolality SNOMED Code(s): 995020620 Code(s): E87.1 - HYPO-OSMOLALITY AND HYPONATREMIA Status: Acute Priority: High Current Visit: Yes (13) Metastatic breast cancer SNOMED Code(s): 193222942, 607131979 Code(s): C50.919 - MALIGNANT NEOPLASM OF UNSP SITE OF UNSPECIFIED FEMALE BREAST Status: Acute Priority: High Current Visit: Yes (14) Renal insufficiency SNOMED Code(s): 379857557, 599849475 Code(s): N28.9 - DISORDER OF KIDNEY AND URETER, UNSPECIFIED Status: Acute Priority: High Current Visit: Yes (15) UTI (urinary tract infection) SNOMED Code(s): 85921812 Code(s): N39.0 - URINARY TRACT INFECTION, SITE NOT SPECIFIED Status: Acute Priority: High Current Visit: Yes Qualifiers: Urinary tract infection type: acute cystitis Hematuria presence: with hematuria Qualified Code(s): N30.01 - Acute cystitis with hematuria (16) Anemia SNOMED Code(s): 617680917 Code(s): D64.9 - ANEMIA, UNSPECIFIED Status: Acute Priority: High Current Visit: Yes Qualifiers: Anemia type: unspecified type Qualified Code(s): D64.9 - Anemia, unspecified (17) S/P thoracentesis SNOMED Code(s): 511570727, 16025661, 242215380 Code(s): Z98.890 - OTHER SPECIFIED POSTPROCEDURAL STATES Status: Acute Priority: High Current Visit: Yes - Problem List Review Problem List Initiated/Reviewed/Updated: Yes - My Orders Last 24 Hours: My Active Orders 08/21/20 07:38 Consult to [employer] [CONS] Routine 08/21/20 15:00 Azithromycin [Zithromax] 500 mg Sodium Chloride 0.9% [Normal Saline (AdvBag)] 250 ml IV Q24H Sodium Chloride/KCl [Thermotabs] 2 each PO BID 08/22/20 06:36 MAGNESIUM [CHEM] AM 08/23/20 05:11 MAGNESIUM [CHEM] AM 08/24/20 05:11 MAGNESIUM [CHEM] AM 08/25/20 05:11 MAGNESIUM [CHEM] AM - Plan Plan:: Assessment: Severe chronic hyponatremia, improved Bilateral Pleural Effusions R>L seen on CT scan, POA CAP, POA: Right middle lobe and Lingula Hypomagnesemia, resolved Hypokalemia, persistent Hypoalbuminemia Metastatic breast cancer : lungs and liver Normocytic Normochromic Anemia S/P Thoracentesis on 08/21/2020 [facility] * Mild symptoms from hyponatremia: Nausea, lethargy, fatigue * 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 * Poor oral intake likely contributing to the above. * Also on a thiazide diuretic, hydrochlorothiazide 12.5 mg daily; has been discontinued hctz * Low serum osmolality, but no urine osmolality or urine sodium available. * Given 500 mL normal saline at the cancer clinic and 1000 mL in the emergency department. * Sodium today is stable at 128 * 1800 fluid restriction * Goal: Upper 120s to low 130s * Albumin 2.8-2.6 * Dr. Peoples performed thoracentesis on 08/21/2020 with over 800 ml of clear straw color output * Fluid sent for labs * Continue Rocephin 1 gram * Continue azithromycin * Unable to produce good sputum sample * IS as directed with bedside pulmonary exercise * Monitor inflammatory markers * Iron panel: Iron 17, TIBC 185, percent saturation 9, transferrin 148 * Iron transfusion on 08/22/2020 UTI * Urine done at clinic was positive for nitrites and greater than 50 WBCs per high-powered field * Continue 1 gram Rocephin daily * Urine CX showing key sensitive e. coli with another GNR * Blood cultures negative Diabetes mellitus, insulin-dependent, not well controlled * Patient states that she has recently had low blood sugars in the mornings. This appears to be secondary to poor intake after starting chemotherapy. * Home dose: Toujeo 68 units every morning, Humalog 10 units in the morning, 15 units in the afternoon, and 25 units in the evening with sliding scale * Lantus 15 units BID with Moderate ISS. * Unknown hemoglobin A1c * Had hypoglycemic episode with glucose dropping in the 50s but for the most prt her glucose has been poor controlled Renal insufficiency, unknown chronic versus acute - Improved * Creatinine 1.7-->1.4, estimated GFR 30-->37 Hypertension Hyperlipidemia * Blood pressure in the emergency department 147/52. 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
--- NOTE | 2020-08-22 08:41 | CR ---
PROCEDURE INFORMATION: Exam: XR Chest, 1 View Exam date and time: 08/21/2020 4:46 PM Age: 70 years old Clinical indication: Device placement; Other: Post thoracentesis TECHNIQUE: Imaging protocol: XR of the chest Views: 1 view. COMPARISON: CT Chest wo Cont 08/20/2020 9:42 AM FINDINGS: Lungs: Diffuse interstitial lung prominence. Suggestion of multiple nodular opacities within both lungs. Pleural space: No pneumothorax. Small left pleural effusion. Heart/Mediastinum: Unremarkable. No cardiomegaly. Bones/joints: Unremarkable. IMPRESSION: 1. No evidence for pneumothorax post thoracentesis. 2. Small left pleural effusion. 3. Diffuse interstitial prominence as well as the suggestion of multiple underlying pulmonary nodules as also seen on the CT from 08/20/2020. Please see report from that examination. Suspicious for underlying malignancy. Thank you for allowing us to participate in the care of your patient. Dictated and Authenticated by: Nacho Boyer MD 08/21/2020 6:42 PM Central Time ([place] & [place]) [place]
[2020-08-22] MEDS: Aspirin 81 MG Tab.EC PO SCH (08:55)
[2020-08-22] MEDS: Sodium Chloride/Potassium Chloride Tab PO SCH ×2 (08:55→20:22)
[2020-08-22] MEDS: busPIRone 5 MG Tab PO SCH ×2 (08:57→20:22)
[2020-08-22] MEDS: Metoprolol Tartrate 100 MG Tab PO SCH ×2 (08:57→20:21)
[2020-08-22] MEDS: amLODIPine 10 MG Tab PO SCH (08:58)
[2020-08-22] MEDS: Azithromycin 500 MG in Sodium Chloride 0.9% 250 ML IV SCH (15:10)
[2020-08-22] MEDS: Latanoprost 0.005% Ophth Soln 2.5 ML Bottle EYEBOTH SCH (20:21)
[2020-08-22] MEDS: Enoxaparin 30 MG/0.3 ML Syringe SUBCUT SCH (20:22)
[2020-08-22] MEDS: cefTRIAXone 1 GM in Sodium Chloride 0.9% 100 ML IV SCH (21:03)
[2020-08-23] MEDS ORDERED: Magnesium Sulfate/Water 2 GM/50 ML BAG IV ONE (08:00)
[2020-08-23] MEDS: Insulin Lispro 100 Units/ML 3 ML Vial SUBCUT SCH ×2 (08:33→13:09)
[2020-08-23] MEDS: Metoprolol Tartrate 100 MG Tab PO SCH (08:36)
[2020-08-23] MEDS: busPIRone 5 MG Tab PO SCH (08:36)
[2020-08-23] MEDS: amLODIPine 10 MG Tab PO SCH (08:37)
[2020-08-23] MEDS: Sodium Chloride/Potassium Chloride Tab PO SCH (08:37)
[2020-08-23] MEDS: Aspirin 81 MG Tab.EC PO SCH (08:37)
--- NOTE | 2020-08-23 11:11 | PCM.DCSUM1 ---
Discharge Summary - Hospital Course HPI Initial Comments: 70-year-old female with history of breast cancer first diagnosed in 2000 had a recurrence in 2018 with metastasis to the lung and then after further chemo returned again approximately a month ago into her lymph nodes. Approximately 1 month ago she started on Afinitor and Aromasin and since then she has been feeling fatigued. Apparently she has had significantly low sodium levels over the last week or so. Last week her sodium was 120 and today at clinic it was 119. Potassium was also low at 3.0. She was given 500 mL of normal saline and 10 mEq of potassium at the cancer clinic and referred to our emergency department. There her sodium was found to be 118 with potassium of 2.8 and a magnesium of 1.4. She was given another 500 mL of normal saline, potassium 40 mEq p.o., and 2 g of magnesium IV. Patient was then referred for admission for further correction of her chronic hyponatremia. Oncology nurse practitioner did tell her to stop taking her to do chemotherapy medications. She states the last time she took Afinitor was 1 week ago and Aromasin yesterday. She also states that she is feeling better now than she has in the last month. She feels a little stronger. Serum osmolality here was 249, but a urine osmolality and urine sodium were not obtained. Patient did have a UTI on labs obtained at the cancer center. She had greater than 50 WBCs and positive nitrites. Covid negative. When she was brought to the inpatient side her oxygen saturations were below 90. Patient was started on 2 L nasal cannula. Diagnosis: Stroke: No - Discharge Data Discharge Date: 08/23/20 (Admit date: 08/18/20) Discharge Disposition: Home, Self-Care 01 Condition: Good - Referral to Home Health Primary Care Physician: Arelis Merchant NP - Discharge Diagnosis/Problem(s) (1) Bilateral pleural effusion SNOMED Code(s): 159819843 ICD Code: J90 - PLEURAL EFFUSION, NOT ELSEWHERE CLASSIFIED Status: Acute Priority: High (2) CAP (community acquired pneumonia) SNOMED Code(s): 775062561 ICD Code: J18.9 - PNEUMONIA, UNSPECIFIED ORGANISM Status: Acute Priority: High Qualifiers: Laterality: right Lung location: middle lobe of lung Qualified Code(s): J18.9 - Pneumonia, unspecified organism (3) Lung metastases SNOMED Code(s): 09060956 ICD Code: C78.00 - SECONDARY MALIGNANT NEOPLASM OF UNSPECIFIED LUNG Status: Chronic Priority: Medium Qualifiers: Laterality: unspecified laterality Qualified Code(s): C78.00 - Secondary malignant neoplasm of unspecified lung (4) Liver metastases Status: Chronic Priority: Medium (5) Hyperlipidemia SNOMED Code(s): 78043320 ICD Code: E78.5 - HYPERLIPIDEMIA, UNSPECIFIED Status: Chronic Priority: Medium Qualifiers: Hyperlipidemia type: unspecified Qualified Code(s): E78.5 - Hyperlipidemia, unspecified (6) Anxiety SNOMED Code(s): 47330776 ICD Code: F41.9 - ANXIETY DISORDER, UNSPECIFIED Status: Chronic Priority: Medium (7) Diabetes mellitus SNOMED Code(s): 27084246 ICD Code: E11.9 - TYPE 2 DIABETES MELLITUS WITHOUT COMPLICATIONS Status: Chronic Priority: Medium Qualifiers: Diabetes mellitus type: type 2 Diabetes mellitus jail insulin use: with biologist use Diabetes mellitus complication status: with other specified complication Qualified Code(s): E11.69 - Type 2 diabetes mellitus with other specified complication; Z79.4 - endodontist (current) use of insulin (8) Hypertension SNOMED Code(s): 20129954 ICD Code: I10 - ESSENTIAL (PRIMARY) HYPERTENSION Status: Chronic Priority: Medium Qualifiers: Hypertension type: unspecified Qualified Code(s): I10 - Essential (primary) hypertension (9) Hypoalbuminemia SNOMED Code(s): 918877923 ICD Code: E88.09 - OTH DISORDERS OF PLASMA-PROTEIN METABOLISM, NEC Status: Acute Priority: Medium (10) Hypokalemia SNOMED Code(s): 20707303 ICD Code: E87.6 - HYPOKALEMIA Status: Resolved (11) Hypomagnesemia SNOMED Code(s): 258598820 ICD Code: E83.42 - HYPOMAGNESEMIA Status: Resolved Priority: Medium (12) Hyponatremia with decreased serum osmolality SNOMED Code(s): 123243977 ICD Code: E87.1 - HYPO-OSMOLALITY AND HYPONATREMIA Status: Acute Priority: High (13) Metastatic breast cancer SNOMED Code(s): 153354599, 892067358 ICD Code: C50.919 - MALIGNANT NEOPLASM OF UNSP SITE OF UNSPECIFIED FEMALE BREAST Status: Acute Priority: High (14) Renal insufficiency SNOMED Code(s): 707020031, 505556446 ICD Code: N28.9 - DISORDER OF KIDNEY AND URETER, UNSPECIFIED Status: Acute Priority: High (15) UTI (urinary tract infection) SNOMED Code(s): 62714475 ICD Code: N39.0 - URINARY TRACT INFECTION, SITE NOT SPECIFIED Status: Acute Priority: High Qualifiers: Urinary tract infection type: acute cystitis Hematuria presence: with hematuria Qualified Code(s): N30.01 - Acute cystitis with hematuria (16) Anemia SNOMED Code(s): 906166661 ICD Code: D64.9 - ANEMIA, UNSPECIFIED Status: Acute Priority: High Qualifiers: Anemia type: unspecified type Qualified Code(s): D64.9 - Anemia, unspecified (17) S/P thoracentesis SNOMED Code(s): 786345349, 85646366, 499389383 ICD Code: Z98.890 - OTHER SPECIFIED POSTPROCEDURAL STATES Status: Acute Priority: High - Patient Summary/Data Consults: Consultations 08/19/20 14:37 Consult to Speech Language Pathology [NOTCHER Evaluation and Treatment] [CONS] Routine 08/20/20 11:17 Consult to Physician [CONS] Routine 08/21/20 07:38 Consult to Cloth Presser [CONS] Routine Labs Pending at D/C: None Recommended Follow-up Testing/Procedures: Follow-up with primary care provider within 7-10 days of discharge, sooner if needed. -Recommend recheck CBC, CMP, Magnesium at that visit. -Consider repeat CXR Patient to reschedule with Dr. Malone, oncology after discharge Hospital Course: Brianna Costello was admitted to the medical surgical floor due to UTI. Chest x-ray was obtained that showed a possible community-acquired pneumonia versus atelectasis. She was on 1 g Rocephin and 500 mg azithromycin was added after the patient chest x-ray revealed possible CAP. She was utilizing incentive spirometry and remained on 2L oxygen throughout her stay. Respiratory therapy did qualify her for home oxygen prior to discharge. Given hypertonic saline and her sodium did improve. She was then started on Thermotabs 2 tabs twice daily with a sodium of 130 prior to discharge. Potassium was monitored and was low end of normal. Urine cultures grew out 2 different E. coli bugs, both of which were pansensitive. She was noted to have significant pleural effusions and Dr. Gonzales, general surgeon, did perform a thoracentesis on the patient with approximately 800ml of yellow slightly cloudy output. Cultures of this fluid have been negative thus far. She was anemic while here with her hemoglobin mostly in the mid to upper 70s. Iron panel was obtained and low iron was noted. She was given an iron infusion on 08/22/2020 with good response. CRP did trend down. GFR improved to the upper 30s and low 40s prior to discharge. It is felt that because the patient is on HCTZ may be affecting her sodium and this was stopped prior to discharge. Patient is a diabetic and was on both basal and short acting insulin at home. Her blood sugars here have been very stable and she has been utilizing minimal sliding scale insulin. Prior to discharge discussion was had with Dr. Romero, attending hospitalist, about patient's d iabetic regimen. Patient has had some diarrhea and her oral intake has been variable. Because of this there is concern that she may go higher low with her sugars. She has utilize sliding scale in the past and we will therefore discharge her on sliding scale medium dose insulin. Instructed to take her blood sugars 4 times a day before meals and bedtime and record these in a journal, bring them with to all medical appointments. She is aware that her primary care provider may need to adjust her insulin. She was on a fluid restriction while here and will be discharged on a 2L fluid restriction. She was scheduled to see her oncologist, Dr. Malone, while she was here. She was instructed to contact his office and follow-up with him. She should follow-up with her primary care provider within 7 to 10 days of discharge. Recommend recheck CBC, CMP, and magnesium at that appointment. Magnesium was supplemented while here and she will be discharged on 4 more days of magnesium supplementation. She will also be discharged on twice daily 2 tablets of Thermotabs. She will also have 1 more dose of 500 mg azithromycin, which she should take tonight, and 5 more days of every 8 hour Keflex with her first dose starting tonight. PCP should consider repeat CXR on follow-up. She was discharged home today. Home medications were otherwise continued with the exception of insulin and HCTZ as noted above. - Patient Instructions Diet: Fluid Restriction, Diabetic Diet Fluid Restriction: 2000 mL Activity: As Tolerated Notify Provider of: Fever, Increased Pain, Nausea and/or Vomiting Other/Special Instructions: Follow-up with primary care provier within 7-10 days of discharge, sooner if needed. As we disussed, contact Dr. Malone' office to re- schedule your oncology appointment. Utilize your home oxygen as directed. Take your antibiotic until gone, even if you feel 100% better. You were prescirbed 2 more antibiotics. You should take the azithromycin pill tonight and start your keflex tonight at bedtime. The IV medicaiton you were recieving here will cover you until later tonight. As we discussed, your blood sugars were pretty stable while here and we do not want to risk over or under dosing you on your insulin. Therefore you should stop taking your long acting insulin and your usual dosing of short acting insulin. We will switch you to medium intesnity sliding scale insulin. You should check your blood sugar 4 times a day - at meals and before bed and dose accordingly. Be sure to write the results down in a journal and bring this with to all medical appointments. Be sure to seek medical care if you are above 400 with your blood sugars. Your dosing may change as you feel better, eat more, etc. Stop taking your hydrochlorathiazide. We suspect this may play a role in driving down your sodium. Watch your fluid intake. Try to keep less than 2L intake per day. Too much fluid can actually wash out and lower your sodium. You were given salt tablets due to your low sodium. These can also raise your potassium. Be sure your primary care provider watches this and checks labs accordingly. Should symptoms return or worsen, contact your primary care provider or return to the emergency department. - Discharge Plan *PRESCRIPTION DRUG MONITORING PROGRAM REVIEWED*: No *COPY OF PRESCRIPTION DRUG MONITORING REPORT IN PATIENT JUANPABLO: No Prescriptions/Med Rec: Insulin Lispro [Humalog Kwikpen U-100] See Protocol SQ QIDACANDBED #1 insuln.pen cephALEXin [Keflex] 500 mg PO Q8H #15 cap Magnesium Oxide [Magnesium] 400 mg PO DAILY #4 tablet Sodium Chloride/KCl [Thermotabs] 2 each PO BID #60 tablet Azithromycin [Zithromax] 500 mg PO Q24H #1 tablet Home Medications: Home Meds Acetaminophen [Tylenol] 650 mg PO Q6H PRN 08/18/20 [History] Aspirin [Halfprin] 81 mg PO DAILY 08/18/20 [History] Benzonatate [Tessalon Perle] 1 tab PO TID PRN 08/18/20 [History] Calcium Carbonate [Calcium] 500 mg PO ASDIRECTED 08/18/20 [History] Cyanocobalamin (Vitamin B12) [Vitamin B12] 500 mcg PO DAILY 08/18/20 [History] LORazepam [Ativan] 1 mg PO DAILY 08/18/20 [History] Latanoprost [Xalatan 0.005% Ophth Soln] 1 drop TOP BEDTIME 08/18/20 [History] Lutein/Minerals/Vit A,C & E [Ocuvite] 1 tab PO DAILY 08/18/20 [History] Metoprolol Tartrate [Lopressor] 100 mg PO BID 08/18/20 [History] Ondansetron [Zofran ODT] 4 mg PO Q6H PRN 08/18/20 [History] Promethazine [Phenergan] 0.2 mg TOP Q6H PRN 08/18/20 [History] amLODIPine Besylate [Norvasc] 10 mg PO DAILY 08/18/20 [History] busPIRone [Buspar] 10 mg PO BID 08/18/20 [History] lidocaine HCL [Lidocaine HCl Viscous] 30 ml PO Q6H PRN 08/18/20 [History] Azithromycin [Zithromax] 500 mg PO Q24H #1 tablet 08/23/20 [Rx] Insulin Lispro [Humalog Kwikpen U-100] See Protocol SQ QIDACANDBED #1 insuln.pen 08/23/20 [Rx] Magnesium Oxide [Magnesium] 400 mg PO DAILY #4 tablet 08/23/20 [Rx] Sodium Chloride/KCl [Thermotabs] 2 each PO BID #60 tablet 08/23/20 [Rx] cephALEXin [Keflex] 500 mg PO Q8H #15 cap 08/23/20 [Rx] Oxygen Therapy Mode: Nasal Cannula Oxygen Flow Rate (L/min): 2 Patient Handouts: Fluid Restriction, Urinary Tract Infection, Adult, [id number], Sepsis, Diagnosis, Adult Referrals: Arelis Merchant NP [Primary Care Provider] - 08/30/20 8:30 am Lamine Malone MD [Ordering Only Provider] - (Call ' office to reschedule appointment.) - Discharge Summary/Plan Comment DC Time >30 min.: Yes (45 mins ) - General Info Date of Service: 08/23/20 Admission Dx/Problem (Free Text: Admission Diagnosis/Problem Admission Diagnosis/Problem Hyponatremia with decreased serum osmolality Functional Status: Reports: Pain Controlled, Tolerating Diet, Ambulating, Urinating, Incentive Spirometry. Denies: New Symptoms - Review of Systems General: Reports: Weakness (improved ). Denies: Fever, Fatigue, Malaise, Chills HEENT: Reports: No Symptoms. Denies: Headaches, Sore Throat Pulmonary: Reports: Shortness of Breath. Denies: Pleuritic Chest Pain, Cough, Sputum Cardiovascular: Reports: Dyspnea on Exertion. Denies: Chest Pain, Palpitations Gastrointestinal: Reports: Decreased Appetite (improving ), Diarrhea (improving ). Denies: Abdominal Pain, Constipation, Nausea, Vomiting Genitourinary: Reports: No Symptoms. Denies: Pain Musculoskeletal: Reports: No Symptoms Skin: Reports: No Symptoms. Denies: Cyanosis Neurological: Reports: No Symptoms. Denies: Confusion, Numbness, Tingling, Difficulty Walking, Gait Disturbance Psychiatric: Reports: No Symptoms - Patient Data Vitals - Most Recent: Last Vital Signs Temp 98.2 F 08/23/20 07:52 Pulse 98 08/23/20 08:36 Resp 20 08/23/20 07:52 BP 148/54 H 08/23/20 08:37 Pulse Ox 92 L 08/23/20 07:52 Weight - Most Recent: 167 lb I&O - Last 24 hours: Intake & Output 08/22/20 08/23/20 08/23/20 22:59 06:59 14:59 Intake Total 815 300 100 Output Total 375 450 Balance 440 -150 100 Lab Results - Last 24 hrs: Laboratory Results - last 24 hr 08/22/20 08/22/20 08/23/20 Range/Units 16:47 20:27 05:28 WBC (3.98-10.04) K/mm3 RBC (3.98-5.22) M/mm3 Hgb (11.2-15.7) gm/dl Hct (34.1-44.9) % MCV (79.4-94.8) fl MCH (25.6-32.2) pg MCHC (32.2-35.5) g/dl RDW Std Deviation (36.4-46.3) fL Plt Count (182-369) K/mm3 MPV (9.4-12.3) fl Neut % (Auto) (34.0-71.1) % Lymph % (Auto) (19.3-51.7) % Rhea % (Auto) (4.7-12.5) % Eos % (Auto) (0.7-5.8) Baso % (Auto) (0.1-1.2) % Neut # (Auto) (1.56-6.13) K/mm3 Lymph # (Auto) (1.18-3.74) K/mm3 Rhea # (Auto) (0.24-0.36) K/mm3 Eos # (Auto) (0.04-0.36) K/mm3 Baso # (Auto) (0.01-0.08) K/mm3 Manual Slide Review Sodium (136-145) mEq/L Potassium (3.5-5.1) mEq/L Chloride (98-107) mEq/L Carbon Dioxide (21-32) mEq/L Anion Gap (5-15) BUN (7-18) mg/dL Creatinine (0.55-1.02) mg/dL Est Cr Clr Drug Dosing mL/min Estimated GFR (MDRD) (>60) mL/min BUN/Creatinine Ratio (14-18) Glucose (80-115) mg/dL POC Glucose 197 H 198 H 175 H (80-115) mg/dL Calcium (8.5-10.1) mg/dL Magnesium (1.8-2.4) mg/dl C-Reactive Protein (<1.0) mg/dL 08/23/20 08/23/20 Range/Units 05:30 05:30 WBC 5.90 (3.98-10.04) K/mm3 RBC 2.65 L (3.98-5.22) M/mm3 Hgb 7.5 L (11.2-15.7) gm/dl Hct 23.2 L (34.1-44.9) % MCV 87.5 (79.4-94.8) fl MCH 28.3 (25.6-32.2) pg MCHC 32.3 (32.2-35.5) g/dl RDW Std Deviation 50.5 H (36.4-46.3) fL Plt Count 498 H D (182-369) K/mm3 MPV 8.5 L (9.4-12.3) fl Neut % (Auto) 79.1 H (34.0-71.1) % Lymph % (Auto) 7.8 L (19.3-51.7) % Rhea % (Auto) 12.0 (4.7-12.5) % Eos % (Auto) 0.2 L (0.7-5.8) Baso % (Auto) 0.2 (0.1-1.2) % Neut # (Auto) 4.67 (1.56-6.13) K/mm3 Lymph # (Auto) 0.46 L (1.18-3.74) K/mm3 Rhea # (Auto) 0.71 H (0.24-0.36) K/mm3 Eos # (Auto) 0.01 L (0.04-0.36) K/mm3 Baso # (Auto) 0.01 (0.01-0.08) K/mm3 Manual Slide Review Abnormal smear Sodium 130 L (136-145) mEq/L Potassium 3.7 (3.5-5.1) mEq/L Chloride 94 L (98-107) mEq/L Carbon Dioxide 26 (21-32) mEq/L Anion Gap 13.7 (5-15) BUN 9 (7-18) mg/dL Creatinine 1.3 H (0.55-1.02) mg/dL Est Cr Clr Drug Dosing 32.30 mL/min Estimated GFR (MDRD) 41 (>60) mL/min BUN/Creatinine Ratio 6.9 L (14-18) Glucose 172 H (80-115) mg/dL POC Glucose (80-115) mg/dL Calcium 8.5 (8.5-10.1) mg/dL Magnesium 1.7 L (1.8-2.4) mg/dl C-Reactive Protein 9.8 H* (<1.0) mg/dL ZEKE Results - Last 24 hrs: Microbiology 08/21/20 16:30 Gram Stain - Final Pleural Fluid Body Fluid Culture - Preliminary NO GROWTH AFTER 2 DAYS 08/18/20 23:45 Aerobic Blood Culture - Preliminary Blood - Venous - Lab Draw NO GROWTH AFTER 4 DAYS Anaerobic Blood Culture - Final 08/18/20 23:30 Aerobic Blood Culture - Preliminary Blood - Venous NO GROWTH AFTER 4 DAYS Anaerobic Blood Culture - Preliminary NO GROWTH AFTER 4 DAYS 08/19/20 02:00 Urine Culture - Final Urine, Bladder Escherichia Coli Escherichia Coli#2 Med Orders - Current: Current Medications Acetaminophen (Tylenol) 650 mg PO Q4H PRN PRN Reason: Pain (Mild 1-3)/fever Last Admin: 08/21/20 21:02 Dose: 650 mg Documented by: Amlodipine Besylate (Norvasc) 10 mg PO DAILY [facility] Last Admin: 08/23/20 08:37 Dose: 10 mg Documented by: Aspirin (Halfprin) 81 mg PO DAILY [facility] Last Admin: 08/23/20 08:37 Dose: 81 mg Documented by: Azithromycin (Zithromax) 500 mg PO Q24H [facility] Benzonatate (Tessalon Perles) 100 mg PO TID PRN PRN Reason: Cough Buspirone HCl (Buspar) 10 mg PO BID [facility] Last Admin: 08/23/20 08:36 Dose: 10 mg Documented by: Dextrose/Water (Dextrose 50% In Water) 50 ml IVPUSH ASDIRECTED PRN PRN Reason: Hypoglycemia Last Admin: 08/20/20 07:14 Dose: 50 ml Documented by: Enoxaparin Sodium (Lovenox) 40 mg SUBCUT BEDTIME [facility] Guaifenesin/Phenylephrine HCl (Robitussin Dm) 10 ml PO Q4H PRN PRN Reason: Cough Ceftriaxone Sodium 1 gm/ (Sodium Chloride) 100 mls @ 200 mls/hr IV Q24H [facility] Last Admin: 08/22/20 21:03 Dose: 200 mls/hr Documented by: Insulin Human Lispro (Humalog) 0 unit SUBCUT TIDMEALS [facility]; Protocol Last Admin: 08/23/20 08:33 Dose: 2 units Documented by: Latanoprost (Xalatan 0.005% Ophth Soln) 0 ml EYEBOTH BEDTIME [facility] Last Admin: 08/22/20 20:21 Dose: 1 drop Documented by: Metoprolol Tartrate (Lopressor) 100 mg PO BID [facility] Last Admin: 08/23/20 08:36 Dose: 100 mg Documented by: Ondansetron HCl (Zofran) 4 mg IV Q4H PRN PRN Reason: Nausea/Vomiting Oral Electrolytes (Thermotabs) 2 each PO BID [facility] Last Admin: 08/23/20 08:37 Dose: 2 each Documented by: Discontinued Medications Azithromycin (Zithromax) 500 mg PO DAILY [facility] Enoxaparin Sodium (Lovenox) 30 mg SUBCUT DAILY [facility] Last Admin: 08/20/20 08:26 Dose: 30 mg Documented by: Enoxaparin Sodium (Lovenox) 30 mg SUBCUT BEDTIME [facility] Last Admin: 08/22/20 20:22 Dose: 30 mg Documented by: Sodium Chloride (Normal Saline) 1,000 mls @ 500 mls/hr IV ONETIME ONE Stop: 08/18/20 19:10 Last Admin: 08/18/20 17:43 Dose: 500 mls/hr Documented by: Magnesium Sulfate 2 gm/ Premix 50 mls @ 25 mls/hr IV ONETIME ONE Stop: 08/18/20 20:51 Last Admin: 08/18/20 19:16 Dose: 25 mls/hr Documented by: Sodium Chloride (Sodium Chloride 3%) 500 mls @ 15 mls/hr IV ASDIRECTED [facility] Last Admin: 08/18/20 20:59 Dose: 35 mls/hr Documented by: Magnesium Sulfate (Magnesium Sulfate In Water Premix) 2 gm in 50 mls @ 25 mls/hr IV Q2H [facility] Stop: 08/19/20 07:59 Last Admin: 08/19/20 05:29 Dose: 25 mls/hr Documented by: Sodium Chloride (Sodium Chloride 3%) 500 mls @ 15 mls/hr IV ASDIRECTED [facility] Last Admin: 08/20/20 05:39 Dose: 15 mls/hr Documented by: Azithromycin 500 mg/ Sodium (Chloride) 250 mls @ 250 mls/hr IV Q24H [facility] Last Admin: 08/22/20 15:10 Dose: 250 mls/hr Documented by: Ferric Sodium Gluconate Complex 250 mg/ Sodium Chloride 120 mls @ 60 mls/hr IV ONETIME ONE Stop: 08/22/20 12:59 Last Admin: 08/22/20 11:37 Dose: 60 mls/hr Documented by: Magnesium Sulfate (Magnesium Sulfate In Water Premix) 2 gm in 50 mls @ 25 mls/hr IV ONETIME ONE Stop: 08/23/20 09:59 Last Admin: 08/23/20 08:31 Dose: 25 mls/hr Documented by: Insulin Glargine (Lantus) 50 unit SUBCUT DAILY [facility] Last Admin: 08/19/20 08:58 Dose: 50 units Documented by: Insulin Glargine (Lantus) 15 unit SUBCUT BID [facility] Last Admin: 08/19/20 20:24 Dose: 15 unit Documented by: Insulin Human Lispro (Humalog) 10 unit SUBCUT TIDPC [facility] Last Admin: 08/19/20 08:58 Dose: Not Given Documented by: Insulin Human Lispro (Humalog) 0 unit SUBCUT TIDPC PRN; Protocol PRN Reason: hyperglcyemia Ondansetron HCl (Zofran) 4 mg IVPUSH ONETIME ONE Stop: 08/18/20 19:22 Last Admin: 08/18/20 19:25 Dose: 4 mg Documented by: Potassium Chloride (Klor-Con M20) 40 meq PO ONETIME ONE Stop: 08/18/20 18:53 Last Admin: 08/18/20 19:14 Dose: 40 meq Documented by: Potassium Chloride (Klor-Con M20) 40 meq PO ONETIME ONE Stop: 08/19/20 03:38 Last Admin: 08/19/20 03:53 Dose: 40 meq Documented by: Potassium Chloride (Klor-Con M20) 60 meq PO ONETIME ONE Stop: 08/20/20 10:26 Last Admin: 08/20/20 11:08 Dose: 60 meq Documented by: - Exam Quality Assessment: Reports: Supplemental Oxygen (2L), DVT Prophylaxis. Denies: Urine Catheter General: Reports: Alert, Oriented, Cooperative, No Acute Distress HEENT: Reports: Pupils Equal, Pupils Reactive, Mucous Membr. Moist/[place] Neck: Reports: Supple, Trachea Midline Lungs: Reports: Normal Respiratory Effort, Decreased Breath Sounds. Denies: Rhonchi, Wheezing Cardiovascular: Reports: Regular Rate, Regular Rhythm GI/Abdominal Exam: Normal Bowel Sounds, Soft, Non-Tender, No Distention (Female) Exam: Deferred Rectal (Female) Exam: Deferred Back Exam: Reports: Normal Inspection, Full Range of Motion Extremities: Normal Inspection, Normal Range of Motion, Non-Tender, No Pedal Edema, Normal Capillary Refill Skin: Reports: Warm, Dry, Intact Neurological: Reports: No New Focal Deficit Psy/Mental Status: Reports: Alert, Normal Affect, Normal Mood
[2020-08-23] MEDS ORDERED: Azithromycin 250 MG Tab PO SCH ×2 (15:00)
[2020-08-23] MEDS ORDERED: Enoxaparin 40 MG/0.4 ML Syringe SUBCUT SCH (21:00)
== END 2020-08-23 13:50 | disposition home or self-care (01) | DRG 640 ==
LOC: JD.ED 16:12 → JD.MS 19:57 → UNDOADMOB 19:57 → JD.MS 21:05 → OBSVTOIN 08-20 11:12
PROVIDERS: ADMIT Family Medicine; ATTEND Internal Medicine
PROC: 0W993ZZ Drainage of Right Pleural Cavity, Percutaneous Approach (ICD-10-PCS; principal; 2020-08-20)
DX: E87.1 Hypo-osmolality and hyponatremia (principal); J18.9 Pneumonia, unspecified organism; N30.01 Acute cystitis with hematuria; N39.0 Urinary tract infection, site not specified; E11.9 Type 2 diabetes mellitus without complications; N28.9 Disorder of kidney and ureter, unspecified; I10 Essential (primary) hypertension; C78.00 Secondary malignant neoplasm of unspecified lung; J91.8 Pleural effusion in other conditions classified elsewhere; E87.6 Hypokalemia; C77.9 Secondary and unspecified malignant neoplasm of lymph node, unspecified; Z20.828 Contact with and (suspected) exposure to other viral communicable diseases; E78.5 Hyperlipidemia, unspecified; F41.9 Anxiety disorder, unspecified; E88.09 Other disorders of plasma-protein metabolism, not elsewhere classified; E83.42 Hypomagnesemia; C50.919 Malignant neoplasm of unspecified site of unspecified female breast; Z92.21 Personal history of antineoplastic chemotherapy; D64.9 Anemia, unspecified; J90 Pleural effusion, not elsewhere classified; R19.7 Diarrhea, unspecified; H54.7 Unspecified visual loss; I12.9 Hypertensive chronic kidney disease with stage 1 through stage 4 chronic kidney disease, or unspecified chronic kidney disease; H91.90 Unspecified hearing loss, unspecified ear; I48.91 Unspecified atrial fibrillation; I25.10 Atherosclerotic heart disease of native coronary artery without angina pectoris; G47.30 Sleep apnea, unspecified; N18.9 Chronic kidney disease, unspecified; E11.22 Type 2 diabetes mellitus with diabetic chronic kidney disease; E66.9 Obesity, unspecified; I25.2 Old myocardial infarction; Z79.82 Long term (current) use of aspirin; Z79.899 Other long term (current) drug therapy; Z79.4 Long term (current) use of insulin; Z97.4 Presence of external hearing-aid; Z88.1 Allergy status to other antibiotic agents; Z98.890 Other specified postprocedural states; Z88.0 Allergy status to penicillin; Z90.11 Acquired absence of right breast and nipple; Z95.5 Presence of coronary angioplasty implant and graft; Z95.1 Presence of aortocoronary bypass graft
CPT/HCPCS: 36415; 71045; 71045-26; 71046; 71046-26; 71250; 71250-26; 76942; 80048; 80053; 82945; 82962; 83036; 83540; 83615; 83735; 83930; 84100; 84157; 84295; 84443; 84466; 85014; 85018; 85025; 85652; 86140; 87040; 87070; 87086; 87088; 87186; 87205; 89050; 92610-GN; 94760; 94761; 96365; 96366; 96367; 96372; 96375; 96376; 99284; 99285-25; A9270-GY; G0378; J0456; J0696; J1650; J1815-GY; J2405; J2916; J3475; J7030; J7040; J7050; U0002

== ENCOUNTER 2024-01-12 15:39 | Emergency (ER) | payer MEDICARE, BC ==
[2024-01-12 15:58] LABS: BASOPHILS ABSOLUTE AUTO 0.1 K/mm3 (0.0-0.2); BASOPHILS PERCENT AUTO 0.6 % (0.0-1.0); HEMATOCRIT 27.8 % (37.0-47.0); HEMOGLOBIN 8.7 gm/dl (12.0-16.0); IMMATURE GRAN ABSOLUTE AUTO 0.06 K/mm3 (0.00-0.05); IMMATURE GRAN PERCENT AUTO 0.8 % (0.0-0.4); LYMPHOCYTES ABSOLUTE AUTO 0.8 K/mm3 (1.0-4.8); LYMPHOCYTES PERCENT AUTO 9.4 % (24.0-44.0); MEAN CORPUSCULAR HGB CONC 31.3 g/dl (32.0-36.0); MEAN CORPUSCULAR VOLUME 86.3 fl (83.0-99.0); MEAN PLATELET VOLUME 9.5 fl (9.4-12.3); MONOCYTES ABSOLUTE AUTO 1.8 K/mm3 (0.0-0.8); NEUTROPHILS ABSOLUTE AUTO 5.4 K/mm3 (1.8-7.7); NEUTROPHILS PERCENT AUTO 67.2 % (41.0-71.0); NRBC ABSOLUTE 0.02 (0.00-0.02); NRBC PERCENT 0.3 % (0.0-0.2); PLATELET COUNT,PLT 369 K/mm3 (150-400); RED BLOOD CELL COUNT 3.22 M/mm3 (4.10-5.30); WHITE BLOOD CELL COUNT,WBC 7.99 K/mm3 (3.9-11.3)
[2024-01-12] MEDS ORDERED: Sodium Chloride 0.9% 10 ML Syringe FLUSH PRN (16:04)
[2024-01-12] MEDS: Sodium Chloride 0.9% 10 ML Syringe FLUSH PRN (16:08)
[2024-01-12] MEDS: Iopamidol 755 Mg/ML 100 ML Bottle IVPUSH ONE (16:08)
[2024-01-12] MEDS ORDERED: Sodium Chloride 0.9% 45 ML IV SCH (16:15)
[2024-01-12 16:24] LABS: INR 1.04; PROTHROMBIN TIME 11.1 SECONDS (9.7-12.0)
[2024-01-12 16:25] LABS: PTT,PARTIAL THROMBOPLSTIN TIME 26.5 SECONDS (21.7-31.4)
[2024-01-12 16:28] LABS: A/G RATIO 0.7 (1-2); ALBUMIN 3.1 g/dl (3.4-5.0); ANION GAP 17.9 (5-15); BILIRUBIN TOTAL 0.5 mg/dL (0.2-1.0); BUN/CREATININE RATIO 18.6 (14-18); CREATININE 1.4 mg/dL (0.55-1.02); EST CRCL DRUG DOSING (CG) 28.73 mL/min; POTASSIUM,K 4.9 mEq/L (3.5-5.1); PROTEIN TOTAL,TP 7.6 g/dl (6.4-8.2)
[2024-01-12] MEDS: Sodium Chloride 0.9% 1,000 ML IV SCH (17:05)
[2024-01-12] MEDS: Tenecteplase 50 MG Kit IV STA (17:09)
[2024-01-12] MEDS: Acetaminophen 650 MG Supp RECTAL ONE (17:27)
== END 2024-01-12 18:45 ==
LOC: JD.ED 15:39
DX: I63.9 Cerebral infarction, unspecified (principal); I25.10 Atherosclerotic heart disease of native coronary artery without angina pectoris; I25.2 Old myocardial infarction; I48.91 Unspecified atrial fibrillation; Z95.1 Presence of aortocoronary bypass graft; E11.9 Type 2 diabetes mellitus without complications; E66.9 Obesity, unspecified; Z95.5 Presence of coronary angioplasty implant and graft; Z79.82 Long term (current) use of aspirin; Z79.4 Long term (current) use of insulin; Z88.0 Allergy status to penicillin; Z88.8 Allergy status to other drugs, medicaments and biological substances; Z79.899 Other long term (current) drug therapy; Z68.25 Body mass index [BMI] 25.0-25.9, adult
CPT/HCPCS: 36415; 37195; 51702; 70450; 70496; 70498; 71045; 80053; 83690; 83880; 84484; 85025; 85610; 85730; 93005; 96360; 96361; 99285; A9270; J3101; J3490; J7030; Q9967

== ENCOUNTER 2024-02-25 18:15 | Emergency (ER) | payer MEDICARE, BC ==
[2024-02-25] MEDS: Sodium Chloride 0.9% 10 ML Syringe FLUSH PRN (19:30)
[2024-02-25 19:49] LABS: BASOPHILS PERCENT AUTO 0.4 % (0.0-1.0); HEMATOCRIT 29.4 % (37.0-47.0); HEMOGLOBIN 9.3 gm/dl (12.0-16.0); IMMATURE GRAN ABSOLUTE AUTO 0.02 K/mm3 (0.00-0.05); IMMATURE GRAN PERCENT AUTO 0.4 % (0.0-0.4); LYMPHOCYTES ABSOLUTE AUTO 0.5 K/mm3 (1.0-4.8); LYMPHOCYTES PERCENT AUTO 10.8 % (24.0-44.0); MEAN CORPUSCULAR HGB CONC 31.6 g/dl (32.0-36.0); MEAN CORPUSCULAR VOLUME 88.6 fl (83.0-99.0); MEAN PLATELET VOLUME 9.9 fl (9.4-12.3); MONOCYTES ABSOLUTE AUTO 0.5 K/mm3 (0.0-0.8); MONOCYTES PERCENT AUTO 9.8 % (0.0-8.0); NEUTROPHILS ABSOLUTE AUTO 3.9 K/mm3 (1.8-7.7); NEUTROPHILS PERCENT AUTO 78.6 % (41.0-71.0); PLATELET COUNT,PLT 173 K/mm3 (150-400); RED BLOOD CELL COUNT 3.32 M/mm3 (4.10-5.30)
[2024-02-25] MEDS: Acetaminophen/HYDROcodone 325-5 MG Tab PO ONE (19:54)
[2024-02-25 20:13] LABS: A/G RATIO 0.6 (1-2); ALBUMIN 2.7 g/dl (3.4-5.0); ANION GAP 11.2 (5-15); BUN/CREATININE RATIO 14.2 (14-18); CREATININE 1.2 mg/dL (0.55-1.02); EST CRCL DRUG DOSING (CG) 31.98 mL/min
[2024-02-25 20:32] LABS: POTASSIUM,K 4.2 mEq/L (3.5-5.1)
[2024-02-25 20:33] LABS: BILIRUBIN TOTAL 0.6 mg/dL (0.2-1.0); CALCIUM 11.3 mg/dL (8.5-10.1); PROTEIN TOTAL,TP 7.5 g/dl (6.4-8.2)
== END 2024-02-25 21:30 | disposition home or self-care (01) ==
LOC: JD.ED 18:15
DX: C34.90 Malignant neoplasm of unspecified part of unspecified bronchus or lung (principal); I48.91 Unspecified atrial fibrillation; I25.10 Atherosclerotic heart disease of native coronary artery without angina pectoris; I25.2 Old myocardial infarction; N18.9 Chronic kidney disease, unspecified; E11.22 Type 2 diabetes mellitus with diabetic chronic kidney disease; Z88.0 Allergy status to penicillin; Z88.8 Allergy status to other drugs, medicaments and biological substances; Z79.82 Long term (current) use of aspirin; Z79.899 Other long term (current) drug therapy
CPT/HCPCS: 36415; 71045; 71045-26; 80053; 82947; 85025; 99285; A9270-GY; J1642; J3490

== ENCOUNTER 2024-02-28 17:04 | Emergency (ER) | payer MEDICARE, BC ==
[2024-02-28 18:25] LABS: BASOPHILS PERCENT AUTO 0.4 % (0.0-1.0); HEMATOCRIT 29.5 % (37.0-47.0); HEMOGLOBIN 9.2 gm/dl (12.0-16.0); IMMATURE GRAN ABSOLUTE AUTO 0.01 K/mm3 (0.00-0.05); IMMATURE GRAN PERCENT AUTO 0.2 % (0.0-0.4); LYMPHOCYTES ABSOLUTE AUTO 0.4 K/mm3 (1.0-4.8); LYMPHOCYTES PERCENT AUTO 8.4 % (24.0-44.0); MEAN CORPUSCULAR HGB CONC 31.2 g/dl (32.0-36.0); MEAN CORPUSCULAR VOLUME 89.7 fl (83.0-99.0); MEAN PLATELET VOLUME 9.6 fl (9.4-12.3); MONOCYTES ABSOLUTE AUTO 0.6 K/mm3 (0.0-0.8); MONOCYTES PERCENT AUTO 11.2 % (0.0-8.0); NEUTROPHILS PERCENT AUTO 79.8 % (41.0-71.0); PLATELET COUNT,PLT 158 K/mm3 (150-400); RED BLOOD CELL COUNT 3.29 M/mm3 (4.10-5.30); WHITE BLOOD CELL COUNT,WBC 4.99 K/mm3 (3.9-11.3)
[2024-02-28] MEDS: Sodium Chloride 0.9% 10 ML Syringe FLUSH PRN ×2 (18:43→19:54)
[2024-02-28] MEDS: Sodium Chloride 0.9% 1,000 ML IV SCH (18:43)
[2024-02-28 18:45] LABS: INR 1.03
[2024-02-28 18:47] LABS: PTT,PARTIAL THROMBOPLSTIN TIME 34.5 SECONDS (21.7-31.4)
[2024-02-28 18:54] LABS: D-DIMER QUANTITATIVE 2.64 mg/L (0.19-0.50)
[2024-02-28 18:55] LABS: A/G RATIO 0.5 (1-2); ALBUMIN 2.6 g/dl (3.4-5.0); ANION GAP 9.7 (5-15); BUN/CREATININE RATIO 17.3 (14-18); CREATININE 1.1 mg/dL (0.55-1.02); POTASSIUM,K 4.7 mEq/L (3.5-5.1)
[2024-02-28 18:58] LABS: EST CRCL DRUG DOSING (CG) 34.88 mL/min
[2024-02-28 19:05] LABS: BILIRUBIN TOTAL 0.6 mg/dL (0.2-1.0); PROTEIN TOTAL,TP 7.4 g/dl (6.4-8.2)
[2024-02-28] MEDS: Iopamidol 755 Mg/ML 100 ML Bottle IVPUSH ONE (19:06)
[2024-02-28] MEDS ORDERED: Sodium Chloride 0.9% 100 ML IV SCH (19:15)
[2024-02-28] MEDS: Aspirin 81 MG Tab.Chew PO ONE (19:54)
[2024-02-28 20:51] LABS: APPEARANCE,URINE CLEAR (Clear); BILIRUBIN,URINE NEGATIVE (Negative); COLOR,URINE YELLOW (Yellow); GLUCOSE,URINE NEGATIVE (Negative); KETONES,URINE NEGATIVE (Negative); LEUKOCYTE ESTERASE,URINE NEGATIVE (Negative); NITRITE,URINE NEGATIVE (Negative); OCCULT BLOOD,URINE NEGATIVE (Negative); PH,URINE 6.5 (5.0-8.0); PROTEIN,URINE 2+ (Negative); UROBILINOGEN,URINE 0.2 (0.2-1.0)
[2024-02-28 21:19] LABS: BACTERIA,URINE FEW /hpf (FEW); MUCUS,URINE FEW /hpf (FEW); RBC,URINE 0-5 /hpf (0-5); WBC,URINE 0-5 /hpf (0-5)
== END 2024-02-28 20:21 | disposition home or self-care (01) ==
LOC: JD.ED 17:04
DX: C50.919 Malignant neoplasm of unspecified site of unspecified female breast (principal); C78.00 Secondary malignant neoplasm of unspecified lung; C78.7 Secondary malignant neoplasm of liver and intrahepatic bile duct; I25.10 Atherosclerotic heart disease of native coronary artery without angina pectoris; I25.2 Old myocardial infarction; I48.91 Unspecified atrial fibrillation; E11.9 Type 2 diabetes mellitus without complications; Z88.1 Allergy status to other antibiotic agents; Z88.0 Allergy status to penicillin; Z79.82 Long term (current) use of aspirin; Z79.899 Other long term (current) drug therapy; Z79.4 Long term (current) use of insulin; Z95.1 Presence of aortocoronary bypass graft
CPT/HCPCS: 36415; 70450; 71045; 71275; 80053; 81001; 83690; 83880; 84484; 85025; 85379; 85610; 85730; 93005; 96360; 96361; 99285; A9270; J1642; J3490; J7030; Q9967; 93010; 99284